=== PATIENT | male | born 1935 | race Caucasian/White ===

== ENCOUNTER 2017-08-24 12:57 | Observation (INO) ==
--- NOTE | 2017-08-24 13:03 | Emergency Department Note ---
Disposition Clinical Impression: Chest pain Disposition: Home, Self-Care Condition: Fair General Adult HPI - General Stated complaint: chest pain Time Seen by Provider: 08/24/17 13:00 - Related Data Home Medications Medication Instructions Recorded Confirmed Acetaminophen [Tylenol] 500 mg PO Q6HR PRN 02/04/16 08/24/17 Aspirin 81 mg PO DAILY 02/04/16 08/24/17 Cholecalciferol (Vitamin D3) 1,000 unit PO DAILY 02/04/16 08/24/17 [Vitamin D3] Cyanocobalamin (Vitamin B-12) 1,000 mcg SL DAILY 02/04/16 08/24/17 [Vitamin B-12] Lisinopril [Zestril] 10 mg PO DAILY 02/04/16 08/24/17 Vit A/Vit C/Vit E/Zinc/Copper 2 tab PO DAILY 02/04/16 08/24/17 [Preservision Areds Tablet] hydroCHLOROthiazide 25 mg PO DAILY 02/04/16 08/24/17 [Hydrochlorothiazide] Carbidopa/Levodopa/Entacapone 1 tab PO QID 08/24/17 08/24/17 [Stalevo 200 Tablet] Furosemide [Lasix] 20 mg PO DAILY PRN 08/24/17 08/24/17 Glycopyrrolate [Robinul] 1 mg PO BID 08/24/17 08/24/17 Tamsulosin [Flomax] 0.4 mg PO DAILY 08/24/17 08/24/17 Allergies Allergy/AdvReac Type Severity Reaction Status Date / Time Pneumococcal Vaccine Allergy Muscle Pain Verified 02/04/16 08:16 Past Medical History - Past Medical History Medical history: Reports: DVT, hypertension, pulmonary embolus, other Surgical history: Reports: knee replacement Psychiatric history: Reports: no psych history - Social History Smoking Status: Never smoker Smokeless Tobacco Status: No Alcohol use: Reports: none Drug use: Reports: none Course Vital Signs Temperature 98.2 F 08/24/17 13:03 Pulse Rate 67 08/24/17 13:03 Respiratory Rate 16 08/24/17 13:03 Blood Pressure 160/112 08/24/17 13:03 O2 Sat by Pulse Oximetry 98 08/24/17 13:03 Temperature 97.8 F 08/24/17 16:25 Pulse Rate 70 02/23/18 16:25 Respiratory Rate 17 08/24/17 16:25 Blood Pressure 133/76 08/24/17 16:25 O2 Sat by Pulse Oximetry 94 08/24/17 16:25 Oxygen Delivery Oxygen Delivery Room Air Medical Decision Making - Lab Data Result diagrams: 08/24/17 13:05 08/24/17 13:05 Lab Results 08/24/17 08/24/17 08/24/17 Range/Units 13:05 13:05 13:05 WBC 8.2 (4.3-11.1) K/mcL RBC 4.64 (4.19-5.50) M/mcL Hgb 14.5 (12.9-16.9) g/dL Hct 42.3 (37.5-50.1) % MCV 91.2 (83.0-100.0) fL MCH 31.3 (28.0-33.3) pg MCHC 34.3 (31.6-35.5) g/dL RDW 12.5 (11.5-14.5) % Plt Count 159 (140-400) K/mcL MPV 10.0 (9.4-12.4) fL Immature Gran % 0.5 (0-4) % Seg Neutrophils % 75.3 % Lymphocytes % 15.0 % Monocytes % 5.9 % Eosinophils % 2.9 % Basophils % 0.4 % Neutrophils # 6.2 (1.6-8.9) K/mcL Lymphocytes # 1.2 (0.6-4.6) K/mcL Monocytes # 0.5 (0.0-1.3) K/mcL Eosinophils # 0.2 (0.0-0.6) K/mcL Basophils # 0.0 (0.0-0.2) K/mcL PT 11.6 (9.4-12.1) Seconds INR 1.1 APTT 30.1 (26.0-36.0) Seconds Sodium 140 (136-145) mEq/L Potassium 4.1 (3.5-5.1) mEq/L Chloride 107 (98-107) mEq/L Carbon Dioxide 30 H (23-29) mEq/L BUN 19 (8-23) mg/dL Creatinine 1.04 (0.70-1.30) mg/dL Est GFR ( Amer) > 60 (> 60) Est GFR (Non-Af Amer) > 60 (> 60) BUN/Creatinine Ratio 18 (6-26) Glucose 117 H (70-105) mg/dL Calculated Osmolality 293 (280-300) Calcium 9.3 (8.6-10.3) mg/dL Total Bilirubin 1.3 H (0.3-1.0) mg/dL Direct Bilirubin 0.2 (0.0-0.2) mg/dL Indirect Bilirubin 1.1 (0.0-1.2) mg/dL AST 17 (13-39) Units/L ALT 4 L (7-52) Units/L Alkaline Phosphatase 39 (34-104) Units/L Troponin I (< 0.04) ng/mL Serum Total Protein 6.0 L (6.4-8.9) g/dL Albumin 4.0 (3.5-5.7) g/dL Globulin 2.0 L (2.4-3.5) g/dL Albumin/Globulin Ratio 2.0 (1.1-2.2) Lipase 44 (11-82) Units/L 08/24/17 Range/Units 13:05 WBC (4.3-11.1) K/mcL RBC (4.19-5.50) M/mcL Hgb (12.9-16.9) g/dL Hct (37.5-50.1) % MCV (83.0-100.0) fL MCH (28.0-33.3) pg MCHC (31.6-35.5) g/dL RDW (11.5-14.5) % Plt Count (140-400) K/mcL MPV (9.4-12.4) fL Immature Gran % (0-4) % Seg Neutrophils % % Lymphocytes % % Monocytes % % Eosinophils % % Basophils % % Neutrophils # (1.6-8.9) K/mcL Lymphocytes # (0.6-4.6) K/mcL Monocytes # (0.0-1.3) K/mcL Eosinophils # (0.0-0.6) K/mcL Basophils # (0.0-0.2) K/mcL PT (9.4-12.1) Seconds INR APTT (26.0-36.0) Seconds Sodium (136-145) mEq/L Potassium (3.5-5.1) mEq/L Chloride (98-107) mEq/L Carbon Dioxide (23-29) mEq/L BUN (8-23) mg/dL Creatinine (0.70-1.30) mg/dL Est GFR ( Amer) (> 60) Est GFR (Non-Af Amer) (> 60) BUN/Creatinine Ratio (6-26) Glucose (70-105) mg/dL Calculated Osmolality (280-300) Calcium (8.6-10.3) mg/dL Total Bilirubin (0.3-1.0) mg/dL Direct Bilirubin (0.0-0.2) mg/dL Indirect Bilirubin (0.0-1.2) mg/dL AST (13-39) Units/L ALT (7-52) Units/L Alkaline Phosphatase (34-104) Units/L Troponin I < 0.03 (< 0.04) ng/mL Serum Total Protein (6.4-8.9) g/dL Albumin (3.5-5.7) g/dL Globulin (2.4-3.5) g/dL Albumin/Globulin Ratio (1.1-2.2) Lipase (11-82) Units/L Attestation Statement - Attestation Attestation: I examined this patient and my medical decision-making was reviewed with the Resident Physician. I agree with the documented findings, disposition and treatment plan as described except to the extent set forth below. [id number] time provided Patient presents with chest discomfort when he goes from a position of leaning forward to standing up. He has a history of Parkinson's. He does not appear in any distress upon arrival. Patient seen in conjunction with the resident physician Dr. Clemente
[2017-08-24] MEDS ORDERED: Aspirin 81 MG TAB.CHEW PO ONE (13:13)
[2017-08-24] MEDS ORDERED: 0.9 % Sodium Chloride 500 ML IVC ONE (13:13)
--- NOTE | 2017-08-24 13:24 | Emergency Department Note ---
Disposition Clinical Impression: Chest pain Qualifiers: Chest pain type: unspecified Qualified Code(s): R07.9 - Chest pain, unspecified Disposition: Home, Self-Care Condition: Fair Time of Disposition: 15:50 Chest Pain HPI - General Chief Complaint: ED Chest Pain Stated Complaint: chest pain Time Seen by Provider: 08/24/17 13:00 Source: family Mode of arrival: ambulatory Limitations: no limitations Vital Signs Reviewed: Yes Nursing Notes Reviewed: Yes - History of Present Illness HPI Narrative: 82-year-old male presents with a history of DVT complaining of chest pain shortness of breath. No associated radiation to his right arm, tingling numbness in his right arm he has had pain for the last 2 or 3 days, is currently having 4 out of 10 pain, mostly substernal, associated with diaphoresis and shortness of breath. Patient has previously had DVTs but is not anticoagulated he does not have an IVC filter. Patient denies fever, chills , productive cough, abdominal pain. Urinary symptoms or pain. Pt complaint: chest pain Onset (ago): hour(s) Pain Location: substernal Severity: moderate Severity scale (1-10): 5 Improves with: nothing Worsens with: nothing Associated symptoms: Reports: nausea. Denies: vomiting, diaphoresis, dyspnea, sense of impending doom, palpitations - Related Data Home Medications Medication Instructions Recorded Confirmed Acetaminophen [Tylenol] 500 mg PO Q6HR PRN 02/04/16 02/04/16 Aspirin 81 mg PO DAILY 02/04/16 02/04/16 Carbidopa/Levodopa 25/100 [Sinemet 1 tab PO QID 02/04/16 02/04/16 25/100] Cholecalciferol (Vitamin D3) 1,000 unit PO DAILY 02/04/16 02/04/16 [Vitamin D3] Cyanocobalamin (Vitamin B-12) 1,000 mcg SL DAILY 02/04/16 02/04/16 [Vitamin B-12] Lisinopril [Zestril] 10 mg PO DAILY 02/04/16 02/04/16 Trihexyphenidyl [Artane] 2 mg PO BID 02/04/16 02/04/16 Vit A/Vit C/Vit E/Zinc/Copper 2 tab PO DAILY 02/04/16 02/04/16 [Preservision Areds Tablet] Vitamin B Complex [B Complex] 1 tab PO DAILY 02/04/16 02/04/16 hydroCHLOROthiazide 25 mg PO DAILY 02/04/16 02/04/16 [Hydrochlorothiazide] Allergies Allergy/AdvReac Type Severity Reaction Status Date / Time Pneumococcal Vaccine Allergy Muscle Pain Verified 02/04/16 08:16 All systems ED: reviewed and negative except as stated. Review of Systems: As Per HPI Constitutional: Denies: fever, chills Eyes: Denies: eye pain ENT ED: Denies: ear pain Cardiovascular: Denies: chest pain Respiratory: Denies: cough, dyspnea Gastrointestinal: Denies: abdominal pain Genitourinary: Denies: urgency, dysuria Musculoskeletal: Denies: back pain Integumentary: Denies: rash, abrasion Neurological: Denies: headache Psychiatric: Denies: anxiety Chest Pain PMH - Past Medical History Medical history: Reports: DVT, hypertension, pulmonary embolus, other Surgical history: Reports: knee replacement Psychiatric history: Reports: no psych history - Social History Smoking Status: Never smoker Alcohol use: Reports: none Drug use: Reports: none Physical Exam - General General appearance: alert, in distress - Head Head exam: atraumatic - Eye Eye exam: Present: normal appearance - ENT ENT exam: mucous membranes dry - Neck Neck exam: Present: normal inspection - Chest Chest inspection: Present: normal inspection - Cardiovascular Cardiovascular exam: Present: normal rhythm, tachycardia, other (pitting edema L >R) - Abdominal Exam Abdominal exam: Present: soft, Non-Tender - Extremities Exam Extremities exam: Present: normal inspection, full ROM - Expanded Lower Extremity Exam Lower leg exam: Present: swelling (+2 pitting) Neurovascular/Tendon exam: Present: normal capillary refill. Absent: motor deficit, sensory deficit - Neurological Exam Neurological exam: Present: alert, oriented X3, CN II-XII intact - Psychiatric Psychiatric exam: Present: normal affect - Skin Skin exam: Present: warm Course Course Narrative: 82-year-old male is tachycardic, history of DVTs or for we will get a DVT study of the right lower extremity, also plan is for CT PE to evaluate for pulmonary embolus nitroglycerin aspirin reassess. - Reevaluation(s) Reevaluation #1: Patient with no improvement after nitroglycerin, given fentanyl and Percocet, no acute distress negative troponin and no EKG changes, admitted for chest pain patient is currently stable except for the hospitals Time: 15:50 Vital Signs Temperature 98.2 F 08/24/17 13:03 Pulse Rate 67 08/24/17 13:03 Respiratory Rate 16 08/24/17 13:03 Blood Pressure 160/112 08/24/17 13:03 O2 Sat by Pulse Oximetry 98 08/24/17 13:03 Temperature 98.2 F 08/24/17 13:03 Pulse Rate 64 08/24/17 14:43 Respiratory Rate 14 08/24/17 14:43 Blood Pressure 118/74 08/24/17 14:43 O2 Sat by Pulse Oximetry 97 08/24/17 14:43 Oxygen Delivery Oxygen Delivery Room Air Chest Pain - Differential Diagnosis Likely: stable angina, unstable angina pectoris, atypical chest pain, chest pain - Medical Records Medical records reviewed: Yes I reviewed the patient's medical records. - Lab Data Lab results reviewed: Yes I reviewed the patient's lab results. Result diagrams: 08/24/17 13:05 08/24/17 13:05 Lab Results 08/24/17 08/24/17 08/24/17 Range/Units 13:05 13:05 13:05 WBC 8.2 (4.3-11.1) K/mcL RBC 4.64 (4.19-5.50) M/mcL Hgb 14.5 (12.9-16.9) g/dL Hct 42.3 (37.5-50.1) % MCV 91.2 (83.0-100.0) fL MCH 31.3 (28.0-33.3) pg MCHC 34.3 (31.6-35.5) g/dL RDW 12.5 (11.5-14.5) % Plt Count 159 (140-400) K/mcL MPV 10.0 (9.4-12.4) fL Immature Gran % 0.5 (0-4) % Seg Neutrophils % 75.3 % Lymphocytes % 15.0 % Monocytes % 5.9 % Eosinophils % 2.9 % Basophils % 0.4 % Neutrophils # 6.2 (1.6-8.9) K/mcL Lymphocytes # 1.2 (0.6-4.6) K/mcL Monocytes # 0.5 (0.0-1.3) K/mcL Eosinophils # 0.2 (0.0-0.6) K/mcL Basophils # 0.0 (0.0-0.2) K/mcL PT 11.6 (9.4-12.1) Seconds INR 1.1 APTT 30.1 (26.0-36.0) Seconds Sodium 140 (136-145) mEq/L Potassium 4.1 (3.5-5.1) mEq/L Chloride 107 (98-107) mEq/L Carbon Dioxide 30 H (23-29) mEq/L BUN 19 (8-23) mg/dL Creatinine 1.04 (0.70-1.30) mg/dL Est GFR ( Amer) > 60 (> 60) Est GFR (Non-Af Amer) > 60 (> 60) BUN/Creatinine Ratio 18 (6-26) Glucose 117 H (70-105) mg/dL Calculated Osmolality 293 (280-300) Calcium 9.3 (8.6-10.3) mg/dL Total Bilirubin 1.3 H (0.3-1.0) mg/dL Direct Bilirubin 0.2 (0.0-0.2) mg/dL Indirect Bilirubin 1.1 (0.0-1.2) mg/dL AST 17 (13-39) Units/L ALT 4 L (7-52) Units/L Alkaline Phosphatase 39 (34-104) Units/L Troponin I (< 0.04) ng/mL Serum Total Protein 6.0 L (6.4-8.9) g/dL Albumin 4.0 (3.5-5.7) g/dL Globulin 2.0 L (2.4-3.5) g/dL Albumin/Globulin Ratio 2.0 (1.1-2.2) Lipase 44 (11-82) Units/L 08/24/17 Range/Units 13:05 WBC (4.3-11.1) K/mcL RBC (4.19-5.50) M/mcL Hgb (12.9-16.9) g/dL Hct (37.5-50.1) % MCV (83.0-100.0) fL MCH (28.0-33.3) pg MCHC (31.6-35.5) g/dL RDW (11.5-14.5) % Plt Count (140-400) K/mcL MPV (9.4-12.4) fL Immature Gran % (0-4) % Seg Neutrophils % % Lymphocytes % % Monocytes % % Eosinophils % % Basophils % % Neutrophils # (1.6-8.9) K/mcL Lymphocytes # (0.6-4.6) K/mcL Monocytes # (0.0-1.3) K/mcL Eosinophils # (0.0-0.6) K/mcL Basophils # (0.0-0.2) K/mcL PT (9.4-12.1) Seconds INR APTT (26.0-36.0) Seconds Sodium (136-145) mEq/L Potassium (3.5-5.1) mEq/L Chloride (98-107) mEq/L Carbon Dioxide (23-29) mEq/L BUN (8-23) mg/dL Creatinine (0.70-1.30) mg/dL Est GFR ( Amer) (> 60) Est GFR (Non-Af Amer) (> 60) BUN/Creatinine Ratio (6-26) Glucose (70-105) mg/dL Calculated Osmolality (280-300) Calcium (8.6-10.3) mg/dL Total Bilirubin (0.3-1.0) mg/dL Direct Bilirubin (0.0-0.2) mg/dL Indirect Bilirubin (0.0-1.2) mg/dL AST (13-39) Units/L ALT (7-52) Units/L Alkaline Phosphatase (34-104) Units/L Troponin I < 0.03 (< 0.04) ng/mL Serum Total Protein (6.4-8.9) g/dL Albumin (3.5-5.7) g/dL Globulin (2.4-3.5) g/dL Albumin/Globulin Ratio (1.1-2.2) Lipase (11-82) Units/L - Radiology Data Radiology results reviewed: Yes I reviewed the patient's radiology results. Chest CTA 08/24/17 13:13 IMPRESSION: 1. No evidence of pulmonary embolism 2. No acute infiltrate or edema 3. Cardiomegaly 4. Cholelithiasis D/ / Gabriel Sierra MD / Gabriel Sierra MD Interpreting Provider: Gabriel Sierra MD Chest X-Ray 08/24/17 13:13 IMPRESSION: Normal chest x-ray D/ / Luan Quijano MD / Luan Quijano MD Interpreting Provider: Luan Quijano MD - EKG Data EKG attestation: Yes I reviewed and interpreted this EKG. EKG shows normal: sinus rhythm Rate: normal Rhythm: NSR (67 bpm MA 209 QRS [address] segment elevations or depressions) Heart Score - Score History: Slightly Suspicious EKG: Normal Age: Greater than 65 Risk Factors: Equal/Greater than 3 risk factor or history of atherosclerotic disease Troponin: Less than normal limit HEART Score Total: 4
[2017-08-24 13:27] LABS: Basophils % 0.4 %; Eosinophils # 0.2 K/mcL (0.0-0.6); Eosinophils % 2.9 %; Hematocrit 42.3 % (37.5-50.1); Hemoglobin 14.5 g/dL (12.9-16.9); Immature Granulocytes % 0.5 % (0-4); Lymphocytes # 1.2 K/mcL (0.6-4.6); Mean Corpuscular HGB Conc 34.3 g/dL (31.6-35.5); Mean Corpuscular Hemoglobin 31.3 pg (28.0-33.3); Mean Corpuscular Volume 91.2 fL (83.0-100.0); Monocytes # 0.5 K/mcL (0.0-1.3); Monocytes % 5.9 %; Neutrophils # 6.2 K/mcL (1.6-8.9); Platelet Count 159 K/mcL (140-400); Red Blood Count 4.64 M/mcL (4.19-5.50); Red Cell Distribution Width 12.5 % (11.5-14.5); Segmented Neutrophils % 75.3 %
[2017-08-24] MEDS ORDERED: Nitroglycerin 0.4 MG TAB.SUBL SL ONE (13:30)
[2017-08-24 13:38] LABS: INR 1.1; Prothrombin Time 11.6 Seconds (9.4-12.1)
[2017-08-24 13:40] LABS: Activated Partial Thrombo Time 30.1 Seconds (26.0-36.0)
[2017-08-24 13:48] LABS: Alanine Aminotransferase 4 Units/L (7-52); Alkaline Phosphatase 39 Units/L (34-104); Aspartate Amino Transferase 17 Units/L (13-39); BUN/Creatinine Ratio 18 (6-26); Bilirubin,Direct 0.2 mg/dL (0.0-0.2); Bilirubin,Indirect 1.1 mg/dL (0.0-1.2); Bilirubin,Total 1.3 mg/dL (0.3-1.0); Blood Urea Nitrogen 19 mg/dL (8-23); Calcium 9.3 mg/dL (8.6-10.3); Carbon Dioxide 30 mEq/L (23-29); Chloride 107 mEq/L (98-107); Glucose 117 mg/dL (70-105); Lipase 44 Units/L (11-82); Osmolality,Calculated 293 (280-300); Potassium 4.1 mEq/L (3.5-5.1); Sodium 140 mEq/L (136-145); eGFR For African Americans > 60 (> 60); eGFR For Non-African Americans > 60 (> 60)
[2017-08-24] MEDS ORDERED: *HR* FentaNYL (PF) 100 MCG/2 ML VIAL IVP ONE (15:01)
[2017-08-24] MEDS ORDERED: *HR* OxyCODONE/APAP 5/325 TABLET PO ONE (15:01)
[2017-08-24] MEDS ORDERED: Naloxone 0.4 MG/ML INJ IVP PRN (16:45)
[2017-08-24] MEDS ORDERED: Acetaminophen 325 MG TABLET PO PRN (16:45)
--- NOTE | 2017-08-24 16:51 | Internal Med History&Physical ---
Date of Encounter: 08/24/17 Time of Encounter: 16:49 Assessment and Plan (1) Chest pain Current visit: Yes Status: Acute to r/o ACS due to radiating to arm and numbness of right arm. EKG, chest XRay, initial Troponin normal. Continue Telemetry monitoring, serial Troponins. Check Echocardiogram, nuclear stress test in am. Continue ASA. Check lipid profile. Qualifiers: Chest pain type: unspecified Qualified Code(s): R07.9 - Chest pain, unspecified (2) History of DVT (deep vein thrombosis) Current visit: Yes Status: Chronic remote h/o- DVT and PE per family. CTA chest in the ER showed no e/o- PE or Pneumonia. F/up B/L leg venous Doppler U/S to r/o DVT. DVT prophylaxis with s.c Heparin. (3) Parkinson disease Current visit: Yes Status: Chronic stable and chronic. Continue home meds; supportive care and fall precautions. Internal Medicine - H&P: HPI Chief complaint: Chest pain Admitted From: Emergency Dept Plans for Post Hospital Care: Home History of present illness: Mr. Pritchett is a 82 year old male with h/o- parkinson disease, is brought in by family with c/o- left-sided chest pain. Patient reports he has been having intermittent chest pains for the last -23 days, radiating to neck and back, not associated with activity or diet. His pain got worse today, radiating to right arm and associated with right elbow pain and numbness, while en route to the ER. Had similar complains 2 years ago, no previous h/o- CAD or CHF. Past Med Surg Social Fam HX - Past Medical History Medical history: DVT, hypertension, pulmonary embolus, other (parkinson disease) Psychiatric history: no psych history - Past Surgical History Surgical History: knee replacement (B/L) - Social History Smoking Status: Never smoker Smokeless Tobacco Status: No Alcohol use: none Drug use: none Occupational status: unemployed Current living situation: Home, With Family Activity Level: Independent ambulation Recent Out of Country Travel Within the Last 8 Weeks: No Exposure or Possible Exposure to Illness During Travel: No - Family History Son Hx Family Cardiac Disorders: Yes (HTN) Internal Medicine - H&P: Meds Acetaminophen [Tylenol] 500 mg PO Q6HR PRN 02/04/16 [History] Aspirin 81 mg PO DAILY 02/04/16 [History] Cholecalciferol (Vitamin D3) [Vitamin D3] 1,000 unit PO DAILY 02/04/16 [History] Cyanocobalamin (Vitamin B-12) [Vitamin B-12] 1,000 mcg SL DAILY 02/04/16 [ History] Lisinopril [Zestril] 10 mg PO DAILY 02/04/16 [History] Vit A/Vit C/Vit E/Zinc/Copper [Preservision Areds Tablet] 2 tab PO DAILY [History] hydroCHLOROthiazide [Hydrochlorothiazide] 25 mg PO DAILY 02/04/16 [History] Carbidopa/Levodopa/Entacapone [Stalevo 200 Tablet] 1 tab PO QID 08/24/17 [ History] Furosemide [Lasix] 20 mg PO DAILY PRN 08/24/17 [History] Glycopyrrolate [Robinul] 1 mg PO BID 08/24/17 [History] Tamsulosin [Flomax] 0.4 mg PO DAILY 08/24/17 [History] 3 Allergy/AdvReac Type Severity Reaction Status Date / Time Pneumococcal Vaccine Allergy Muscle Pain Verified 02/04/16 08:16 All Systems PM: A 10-system review of systems was performed and is negative for pertinent findings except as documented above in the HPI. - Constitutional Constitutional: no chills, no fever(s), no night sweats - EENT Eyes: no change in vision, no discharge, no pain, no photophobia Ears: no ear discharge, no ear pain, no tinnitus Nose, mouth and throat: no dysphagia, no nasal discharge, no neck pain, no sore throat - Cardiovascular Cardiovascular ROS IM: chest pain, lightheadedness - Respiratory Respiratory: no cough, no dyspnea, no wheezing, no excessive phlegm production - Gastrointestinal Gastrointestinal: no abdominal pain, no diarrhea, no hematemesis, no hematochezia, no melena, no nausea, no vomiting - Musculoskeletal Musculoskeletal ROS IM: no numbness, no tingling - Integumentary Integumentary IM: no rash, no unusual bruising - Neurological Neurological ROS: tremor(s), no confusion, no convulsions, no focal weakness, no numbness, no tingling - Hematologic/Lymphatic Hematologic/Lymphatic: no easy bruising - Constitutional Vitals: Temp Pulse Resp BP Pulse Ox 97.8 F 70 17 133/76 94 08/24/17 16:25 08/24/17 16:25 08/24/17 16:25 08/24/17 16:25 08/24/17 16:25 General appearance: Present: A&O X 3 (mild hearing loss), answers questions appropriately - Respiratory Respiratory exam: Present: CTAB. Absent: accessory muscle use, rales, rhonchi, wheezes - Cardiovascular Cardiovascular exam: Present: RRR, +S1, +S2. Absent: diastolic murmur, gallop, rubs, systolic murmur - GI/Abdominal GI/Abdominal exam: Present: normal bowel sounds, soft, no peritoneal signs. Absent: distended, tenderness - Extremities Exam Extremities exam: Present: full ROM, pedal edema (1+ pitting pedal edema B/L lower legs and ankles, right>left), warm, radial pulses palpable and symmetrical. Absent: calf tenderness, cyanotic - Neurological Exam Neurological exam: Present: CN II-XII intact, oriented X3, no focal deficits ( pill-rolling resting tremors). Absent: pronater drift, facial droop, speech deficit Internal Med - H&P Results - Labs CBC & Chem 7: 08/24/17 13:05 08/24/17 13:05 - EKG Data -: EKG Interpreted by Myself EKG shows normal: sinus rhythm Rate: normal
[2017-08-24] MEDS: LEVODOPA PO SCH ×2 (20:07→20:20)
[2017-08-24] MEDS: CARBIDOPA PO SCH ×2 (20:07→20:20)
[2017-08-24] MEDS: ENTACAPONE PO SCH ×2 (20:07→20:20)
[2017-08-24] MEDS: *HR* Heparin 5,000 UNIT/ML VIAL SQ SCH (20:11)
[2017-08-24] MEDS: Glycopyrrolate 1 MG TABLET PO SCH (20:12)
[2017-08-25 05:29] LABS: Basophils # 0.1 K/mcL (0.0-0.2); Basophils % 0.6 %; Eosinophils # 0.3 K/mcL (0.0-0.6); Eosinophils % 3.5 %; Hemoglobin 13.2 g/dL (12.9-16.9); Immature Granulocytes % 0.5 % (0-4); Lymphocytes # 1.1 K/mcL (0.6-4.6); Lymphocytes % 14.3 %; Mean Corpuscular HGB Conc 33.8 g/dL (31.6-35.5); Mean Corpuscular Hemoglobin 30.9 pg (28.0-33.3); Mean Corpuscular Volume 91.3 fL (83.0-100.0); Mean Platelet Volume 9.9 fL (9.4-12.4); Monocytes # 0.6 K/mcL (0.0-1.3); Monocytes % 7.3 %; Neutrophils # 5.8 K/mcL (1.6-8.9); Nucleated Red Blood Cells 0.3 /100 WBC (0); Platelet Count 141 K/mcL (140-400); Red Blood Count 4.27 M/mcL (4.19-5.50); Red Cell Distribution Width 12.6 % (11.5-14.5); Segmented Neutrophils % 73.8 %
[2017-08-25] MEDS: *HR* Heparin 5,000 UNIT/ML VIAL SQ SCH (05:32)
[2017-08-25 06:09] LABS: BUN/Creatinine Ratio 17 (6-26); Blood Urea Nitrogen 20 mg/dL (8-23); Calcium 8.9 mg/dL (8.6-10.3); Carbon Dioxide 27 mEq/L (23-29); Chloride 108 mEq/L (98-107); Chol/HDL Ratio 3.3 (0-4.9); Cholesterol 116 mg/dL (< 200); Glucose 94 mg/dL (70-105); HDL Cholesterol 35 mg/dL (40-59); LDL Cholesterol,Calculated 65 mg/dL (0-99); Osmolality,Calculated 290 (280-300); Potassium 4.3 mEq/L (3.5-5.1); Sodium 139 mEq/L (136-145); Triglycerides 78 mg/dL (< 150); eGFR For African Americans > 60 (> 60); eGFR For Non-African Americans > 60 (> 60)
[2017-08-25] MEDS ORDERED: Regadenoson 0.4 MG/5 ML SYRINGE IVP ONE (06:59)
[2017-08-25] MEDS ORDERED: hydroCHLOROthiazide 25 MG TABLET PO SCH (09:00)
[2017-08-25] MEDS ORDERED: Aspirin 81 MG TAB.CHEW PO SCH (09:00)
[2017-08-25] MEDS ORDERED: Multivit/Ca/Min/Fe/FA 1 TAB TABLET PO SCH (09:00)
[2017-08-25] MEDS ORDERED: Cyanocobalamin (B-12) 1,000 MCG TABLET PO SCH (09:00)
[2017-08-25] MEDS ORDERED: Cholecalciferol (D-3) 1,000 UNIT TABLET PO SCH (09:00)
[2017-08-25 12:53] VITALS: BP 131/75
[2017-08-25] MEDS: CARBIDOPA PO SCH ×2 (13:57→14:52)
[2017-08-25] MEDS: LEVODOPA PO SCH ×2 (13:57→14:52)
[2017-08-25] MEDS: ENTACAPONE PO SCH ×2 (13:57→14:52)
[2017-08-25] MEDS: Glycopyrrolate 1 MG TABLET PO SCH (13:59)
--- NOTE | 2017-08-25 14:16 | Discharge Summary ---
Orders not resulted at time of discharge: Pending orders 08/24/17 16:47 NM kevin perf SPECT multi [NM] Routine Date of Encounter: 08/25/17 Time of Encounter: 14:13 - Discharge Diagnosis (1) Chest pain Priority: Primary Status: Acute Qualifiers: Chest pain type: precordial pain Qualified Code(s): R07.2 - Precordial pain (2) History of DVT (deep vein thrombosis) Priority: Secondary Status: Chronic (3) Parkinson disease Priority: Secondary Status: Chronic Hospital course: Mr. Pritchett is a 82 year old male patient with a history of hypertension, Parkinson's disease who was hospitalized here after presenting with left-sided chest pain radiating to the neck and right hand. He was observed here with telemetry. EKG was done which was negative for the stress test was negative for ischemia. As such patient is stable to be discharged home. He does have chest wall tenderness and his chest pain could be related to costochondritis. He is advised to take anti-inflammatory agents to help with his pain. In addition patient has been having hypertension that is suboptimally controlled. As such I am placing him on amlodipine 2.5 mg in addition to his usual antihypertensive regimen. He will follow up with his primary care provider for further management. Discharge discussed with: patient - Time Spent with Patient Total time spent providing and/or coordinating discharge services: Less than 30 minutes (25 min) - Discharge Medications Prescriptions: Nitroglycerin 0.4 mg SL Q5MIN PRN #30 tab.subl PRN Reason: Chest Pain amLODIPine [Norvasc] 2.5 mg PO DAILY #30 tablet Home Medications: Acetaminophen [Tylenol] 500 mg PO Q6HR PRN 02/04/16 [History] Aspirin 81 mg PO DAILY 02/04/16 [History] Cholecalciferol (Vitamin D3) [Vitamin D3] 1,000 unit PO DAILY 02/04/16 [History] Cyanocobalamin (Vitamin B-12) [Vitamin B-12] 1,000 mcg SL DAILY 02/04/16 [ History] Lisinopril [Zestril] 10 mg PO DAILY 02/04/16 [History] Vit A/Vit C/Vit E/Zinc/Copper [Preservision Areds Tablet] 2 tab PO DAILY [History] hydroCHLOROthiazide [Hydrochlorothiazide] 25 mg PO DAILY 02/04/16 [History] Carbidopa/Levodopa/Entacapone [Stalevo 200 Tablet] 1 tab PO QID 08/24/17 [ History] Furosemide [Lasix] 20 mg PO DAILY PRN 08/24/17 [History] Glycopyrrolate [Robinul] 1 mg PO BID 08/24/17 [History] Tamsulosin [Flomax] 0.4 mg PO DAILY 08/24/17 [History] Nitroglycerin 0.4 mg SL Q5MIN PRN #30 tab.subl 08/25/17 [Rx] amLODIPine [Norvasc] 2.5 mg PO DAILY #30 tablet 08/25/17 [Rx] Allergies/Adverse Reactions: 3 Allergy/AdvReac Type Severity Reaction Status Date / Time Pneumococcal Vaccine Allergy Muscle Pain Verified 02/04/16 08:16 Date of admission: 08/24/17 15:28 Primary care physician: MITRA FRENCH Discharging clinician: Julianna Saldana Anticipated date of discharge: 08/25/17 - Constitutional Vitals: Temp Pulse Resp BP Pulse Ox 97.8 F 68 18 131/75 96 08/25/17 12:52 08/25/17 12:52 08/25/17 12:52 08/25/17 12:52 08/25/17 12:52 General appearance: Present: A&O X 3 (mild hearing loss), answers questions appropriately - Neck Neck exam general surgery: Present: supple, trachea midline. Absent: lymphadenopathy - Respiratory Respiratory exam: Present: chest wall tenderness, CTAB. Absent: accessory muscle use, rales, rhonchi, wheezes - Cardiovascular Cardiovascular exam: Present: RRR, +S1, +S2. Absent: diastolic murmur, gallop, rubs, systolic murmur Additional comments: Left-sided chest wall tenderness - Patient Status Disposition: Home, Self-Care Condition: Good Functional capacity at discharge: independent ambulation Overall status at discharge: patient is progressing back to baseline - Discharge Instructions Instructions: Chest Pain (DC) [facility] Care Provider[facility] - (in 1-2 weeks) - Diet and Activity Activity: increase activity as tolerated Diet: low fat, low cholesterol, low salt diet
--- NOTE | 2017-08-27 06:26 | Electrocardiograph Report ---
[facility] Test Date: 2017-08-24 Pat Name: Donn Pritchett Department: 103 Room: 3B41 Gender: M Architecture Intern: FAWN : 1935 Requested By: Jimmy Clemente Order Number: [id number] Reading MD: Ty Suarez DO Measurements Intervals [place] Rate: 69 P: 1 [place]: 209 QRS: -24 QRSD: 94 T: 43 QT: 404 QTc: 423 Interpretive Statements SINUS RHYTHM WITH OCCASIONAL SUPRAVENTRICULAR PREMATURE COMPLEXES BORDERLINE LEFT AXIS DEVIATION [QRS AXIS < -20] LOW QRS VOLTAGE IN PRECORDIAL LEADS [QRS DEFLECTION < 1.0 mV IN CHEST LEADS] POSSIBLE RIGHT VENTRICULAR CONDUCTION DELAY [RSR (QR) IN V1/V2] Electronically Signed On 08-27-2017 6:24:27 EST by Ty Suarez DO
== END 2017-08-25 16:30 | disposition home or self-care (01) ==
LOC: 3BNU 12:57 → EMEROO 12:57 → SUATTDRO 15:28 → 3BNU 16:13
PROVIDERS: ADMIT Family Medicine; ATTEND Internal Medicine

== ENCOUNTER 2019-02-25 15:28 | Inpatient (IN) ==
--- NOTE | 2019-02-25 16:15 | Emergency Department Note ---
Disposition Clinical Impression: Neurological deficit present, Neurocognitive deficits CVA (cerebral vascular accident) Qualifiers: CVA mechanism: unspecified Qualified Code(s): I63.9 - Cerebral infarction, unspecified Cerebrovascular accident Qualifiers: CVA mechanism: unspecified Qualified Code(s): I63.9 - Cerebral infarction, unspecified Disposition: Admitted As Inpatient Condition: Fair Time of Disposition: 18:23 General Adult HPI - General Chief complaint: ED Neuro Symptoms/Deficit Stated complaint: Neuro symptoms,HX Dr.Jones odalis sent Time Seen by Provider: 02/25/19 15:44 Source: patient, family Limitations: no limitations Nursing Notes Reviewed: Yes Vital Signs Reviewed: Yes - History of Present Illness HPI Narrative: Patient is an 84-year-old male with a history of hypertension and Parkinson's who presents to the emergency department from his neurology appointment. History is primarily obtained from his who is at bedside. His states that 2 weeks ago the patient woke up in the morning with weakness, of his right upper and lower extremities. The patient also developed numbness/tingling of his right upper and lower extremities as well as increased dysphagia over the next couple weeks as well as an increased lack of ability to care for himself. Patient's states that the night prior to this event 2 weeks ago he was normal. The patient does see a skilled nursing physician, but they did not send him to the emergency department when the symptoms started and recommended today to be seen at Dr. Harmon office. Patient admits to weakness, headaches, memory loss, numbness tingling, blurry vision. Patient also admits to lower extremity edema started with his Parkinson's. Patient denies chest pain, palpitations, abdominal pain, shortness of breath. Patient has no history of stroke, Pain Scale: 0 - Related Data Home Medications Medication Instructions Recorded Confirmed Aspirin 81 mg PO DAILY 02/04/16 08/24/17 Cholecalciferol (Vitamin D3) 1,000 unit PO DAILY 02/04/16 08/24/17 [Vitamin D3] Cyanocobalamin (Vitamin B-12) 1,000 mcg SL DAILY 02/04/16 08/24/17 [Vitamin B-12] Vit A/Vit C/Vit E/Zinc/Copper 2 tab PO DAILY 02/04/16 08/24/17 [Preservision Areds Tablet] Furosemide [Lasix] 20 mg PO DAILY PRN 08/24/17 08/24/17 Glycopyrrolate [Robinul] 1 mg PO BID 08/24/17 08/24/17 Tamsulosin [Flomax] 0.4 mg PO DAILY 08/24/17 08/24/17 Carbidopa/Levodopa/Entacapone 1 each PO TID 02/25/19 [Stalevo 150 Tablet] Previous Rx's Medication Instructions Recorded Nitroglycerin 0.4 mg SL Q5MIN PRN #30 tab.subl 08/25/17 Allergies Allergy/AdvReac Type Severity Reaction Status Date / Time Pneumococcal Vaccine Allergy Muscle Pain Verified 02/04/16 08:16 All systems ED: reviewed and negative except as stated. Review of Systems: As Per HPI Constitutional: Denies: fever, chills Eyes: Reports: vision change. Denies: eye pain Cardiovascular: Reports: edema. Denies: chest pain, palpitations, dyspnea on exertion, orthopnea Respiratory: Denies: cough, dyspnea Gastrointestinal: Denies: abdominal pain, nausea, vomiting Genitourinary: Denies: urgency, dysuria, frequency Neurological: Reports: headache, weakness, numbness, paresthesias, confusion Past Medical History - Past Medical History Attestation: Yes The following information was validated with the patient. Source: patient, obtained from family Medical history: Reports: DVT, hypertension, pulmonary embolus, other Surgical history: Reports: knee replacement Psychiatric history: Reports: no psych history - Social History Smoking Status: Never smoker Smokeless Tobacco Status: No Alcohol use: Reports: none Drug use: Reports: none Physical Exam - General Limitations: no limitations General appearance: alert, in no apparent distress - Head Head exam: atraumatic, normocephalic, normal inspection - Eye Eye exam: Present: normal appearance, PERRL, EOMI. Absent: scleral icterus, conjunctival injection, nystagmus - ENT ENT exam: normal exam, normal oropharynx, other (Increased secretions) - Chest Chest inspection: Present: normal inspection, symmetric chest wall rise. Absent: tenderness - Respiratory Respiratory exam: Present: normal lung sounds bilaterally. Absent: respiratory distress, wheezes, stridor - Cardiovascular Cardiovascular exam: Present: regular rate, normal rhythm, normal heart sounds - Abdominal Exam Abdominal exam: Present: soft, Non-Tender. Absent: tenderness, distention, guarding, rebound - Extremities Exam Extremities exam: Present: other (Bilateral 2+ pitting edema of the ankles) - Neurological Exam Neurological exam: Present: alert, oriented X3, CN II-XII intact - Expanded Neurological Exam Patient oriented to: Present: person, place, time Speech: Present: fluid speech Cranial nerves: EOM function (II, III, IV, ): Normal, facial sensation (V): Normal, facial palsy (VII): Normal, spinal accessory function (XI): Normal, tongue deviation (XII): Normal Cerebellar function: finger to nose: Normal Motor strength - LUE: 5/5 Motor strength - RUE: 3/5 Motor strength - LLE: 5/5 Motor strength - RLE: 3/5 Upper motor neuron exam: paola neglect: Absent bilaterally Sensory exam upper extremity: light touch: Normal, Abnormal Right, pin prick: Normal Sensory exam lower extremity: light touch: Normal, Abnormal Right, pin prick: Normal Coma Scale Eye Opening: Spontaneous Coma Scale Motor Response: Obeys Commands Coma Scale Verbal Response: Oriented Coma Scale Total: 15 Course Course Narrative: The patient presented emergency department from his neurology appointment with concerns for CVA 2 weeks ago. We will perform a noncontrast head CT and collect labs. Plan to admit the patient for CVA stroke workup and consult neurology. - Reevaluation(s) Reevaluation #1: Spoke with neurology Dr. Kumar who recommended CVA workup and full strength aspi rin. Vital Signs Temperature 97.4 F L 02/25/19 15:38 Pulse Rate 70 02/25/19 15:38 Respiratory Rate 18 02/25/19 15:38 Blood Pressure 125/69 02/25/19 15:38 O2 Sat by Pulse Oximetry 97 02/25/19 15:38 Temperature 97.4 F L 02/25/19 15:38 Pulse Rate 69 02/25/19 19:38 Respiratory Rate 12 02/25/19 19:38 Blood Pressure 133/72 02/25/19 19:38 O2 Sat by Pulse Oximetry 96 02/25/19 19:38 Oxygen Delivery Oxygen Delivery Room Air Medical Decision Making - MDM Narrative Medical decision making narrative: Patient presented emergency department with right-sided weakness concerning for stroke. Patient is outside the TPA window was last known well as 2 weeks ago. Noncontrast head CT was negative for acute intracranial process. Spoke with neurology recommended a full-strength aspirin. Admission with stroke workup. - Medical Records Medical records reviewed: Yes I reviewed the patient's medical records. - Lab Data Lab results reviewed: Yes I reviewed the patient's lab results. Result diagrams: 02/25/19 16:30 02/25/19 16:30 Lab Results 02/25/19 02/25/19 02/25/19 Range/Units 16:30 16:30 16:30 WBC 8.1 (4.3-11.1) K/mcL RBC 4.40 (4.19-5.50) M/mcL Hgb 13.9 (12.9-16.9) g/dL Hct 40.6 (37.5-50.1) % MCV 92.3 (83.0-100.0) fL MCH 31.6 (28.0-33.3) pg MCHC 34.2 (31.6-35.5) g/dL RDW 12.5 (11.5-14.5) % Plt Count 167 (140-400) K/mcL MPV 9.9 (9.4-12.4) fL PT 11.8 (9.4-12.1) Seconds INR 1.0 APTT 33.7 (26.0-36.0) Seconds Sodium 142 (136-145) mEq/L Potassium 3.9 (3.5-5.1) mEq/L Chloride 104 (98-107) mEq/L Carbon Dioxide 30 H (23-29) mEq/L BUN 20 (8-23) mg/dL Creatinine 1.09 (0.70-1.30) mg/dL Est GFR ( Amer) > 60 (> 60) Est GFR (Non-Af Amer) > 60 (> 60) BUN/Creatinine Ratio 18 (6-26) Glucose 116 H (70-105) mg/dL Calculated Osmolality 298 (280-300) Calcium 9.1 (8.6-10.3) mg/dL Troponin I < 0.03 (< 0.04) ng/mL - Radiology Data Radiology results reviewed: Yes I reviewed the patient's radiology results. Chest X-Ray 02/25/19 16:19 IMPRESSION: No acute cardiopulmonary process. D/ / Theodore Baker MD / Theodore Baker MD Interpreting Provider: Theodore Baker MD Head CT 02/25/19 16:21 IMPRESSION: No acute intracranial abnormality detected. Paranasal sinus disease. D/ / Austin Gresham MD / Austin Gresham MD Interpreting Provider: Austin Gresham MD
[2019-02-25 16:51] LABS: Hematocrit 40.6 % (37.5-50.1); Hemoglobin 13.9 g/dL (12.9-16.9); Mean Corpuscular HGB Conc 34.2 g/dL (31.6-35.5); Mean Corpuscular Hemoglobin 31.6 pg (28.0-33.3); Mean Corpuscular Volume 92.3 fL (83.0-100.0); Mean Platelet Volume 9.9 fL (9.4-12.4); Platelet Count 167 K/mcL (140-400); Red Cell Distribution Width 12.5 % (11.5-14.5); White Blood Count 8.1 K/mcL (4.3-11.1)
[2019-02-25 17:13] LABS: BUN/Creatinine Ratio 18 (6-26); Blood Urea Nitrogen 20 mg/dL (8-23); Calcium 9.1 mg/dL (8.6-10.3); Carbon Dioxide 30 mEq/L (23-29); Chloride 104 mEq/L (98-107); Glucose 116 mg/dL (70-105); Osmolality,Calculated 298 (280-300); Potassium 3.9 mEq/L (3.5-5.1); Sodium 142 mEq/L (136-145); eGFR For African Americans > 60 (> 60); eGFR For Non-African Americans > 60 (> 60)
[2019-02-25 17:14] LABS: Troponin I < 0.03 ng/mL (< 0.04)
[2019-02-25 17:21] LABS: Prothrombin Time 11.8 Seconds (9.4-12.1)
[2019-02-25 17:23] LABS: Activated Partial Thrombo Time 33.7 Seconds (26.0-36.0)
[2019-02-25] MEDS ORDERED: Aspirin 81 MG TAB.CHEW PO STA (18:38)
--- NOTE | 2019-02-25 18:45 | Emergency Department Note ---
Disposition Clinical Impression: Neurological deficit present CVA (cerebral vascular accident) Qualifiers: CVA mechanism: unspecified Qualified Code(s): I63.9 - Cerebral infarction, unspecified Disposition: Admitted As Inpatient Condition: Good Referrals: Rustam Smith [Primary Care Provider] - Forms: ED Satisfaction Letter Time of Disposition: 18:45 General Adult HPI - General Chief complaint: ED Neuro Symptoms/Deficit Stated complaint: Neuro symptoms,HX Dr.Jones odalis sent Time Seen by Provider: 02/25/19 15:44 Source: patient, family Limitations: no limitations - History of Present Illness Pain Scale: 0 - Related Data Home Medications Medication Instructions Recorded Confirmed Acetaminophen [Tylenol] 500 mg PO Q6HR PRN 02/04/16 08/24/17 Aspirin 81 mg PO DAILY 02/04/16 08/24/17 Cholecalciferol (Vitamin D3) 1,000 unit PO DAILY 02/04/16 08/24/17 [Vitamin D3] Cyanocobalamin (Vitamin B-12) 1,000 mcg SL DAILY 02/04/16 08/24/17 [Vitamin B-12] Lisinopril [Zestril] 10 mg PO DAILY 02/04/16 08/24/17 Vit A/Vit C/Vit E/Zinc/Copper 2 tab PO DAILY 02/04/16 08/24/17 [Preservision Areds Tablet] hydroCHLOROthiazide 25 mg PO DAILY 02/04/16 08/24/17 [Hydrochlorothiazide] Carbidopa/Levodopa/Entacapone 1 tab PO QID 08/24/17 08/24/17 [Stalevo 200 Tablet] Furosemide [Lasix] 20 mg PO DAILY PRN 08/24/17 08/24/17 Glycopyrrolate [Robinul] 1 mg PO BID 08/24/17 08/24/17 Tamsulosin [Flomax] 0.4 mg PO DAILY 08/24/17 08/24/17 Previous Rx's Medication Instructions Recorded Nitroglycerin 0.4 mg SL Q5MIN PRN #30 tab.subl 08/25/17 amLODIPine [Norvasc] 2.5 mg PO DAILY #30 tablet 08/25/17 Allergies Allergy/AdvReac Type Severity Reaction Status Date / Time Pneumococcal Vaccine Allergy Muscle Pain Verified 02/04/16 08:16 Constitutional: Denies: fever, chills Eyes: Reports: vision change. Denies: eye pain Cardiovascular: Reports: edema. Denies: chest pain, palpitations, dyspnea on exertion, orthopnea Respiratory: Denies: cough, dyspnea Gastrointestinal: Denies: abdominal pain, nausea, vomiting Genitourinary: Denies: urgency, dysuria, frequency Neurological: Reports: headache, weakness, numbness, paresthesias, confusion Past Medical History - Past Medical History Medical history: Reports: DVT, hypertension, pulmonary embolus, other Surgical history: Reports: knee replacement Psychiatric history: Reports: no psych history - Social History Smoking Status: Never smoker Smokeless Tobacco Status: No Alcohol use: Reports: none Drug use: Reports: none Physical Exam - General Limitations: no limitations General appearance: alert, in no apparent distress Course - Consultations Consultation #1: discussed case with Dr. Haywood and she accepts patinet to medicine Time: 18:46 Vital Signs Temperature 97.4 F L 02/25/19 15:38 Pulse Rate 70 02/25/19 15:38 Respiratory Rate 18 02/25/19 15:38 Blood Pressure 125/69 02/25/19 15:38 O2 Sat by Pulse Oximetry 97 02/25/19 15:38 Temperature 97.4 F L 02/25/19 15:38 Pulse Rate 69 02/25/19 18:05 Respiratory Rate 18 02/25/19 18:05 Blood Pressure 133/72 02/25/19 18:05 O2 Sat by Pulse Oximetry 96 02/25/19 18:05 Oxygen Delivery Oxygen Delivery Room Air Medical Decision Making - Lab Data Result diagrams: 02/25/19 16:30 02/25/19 16:30 Lab Results 02/25/19 02/25/19 02/25/19 Range/Units 16:30 16:30 16:30 WBC 8.1 (4.3-11.1) K/mcL RBC 4.40 (4.19-5.50) M/mcL Hgb 13.9 (12.9-16.9) g/dL Hct 40.6 (37.5-50.1) % MCV 92.3 (83.0-100.0) fL MCH 31.6 (28.0-33.3) pg MCHC 34.2 (31.6-35.5) g/dL RDW 12.5 (11.5-14.5) % Plt Count 167 (140-400) K/mcL MPV 9.9 (9.4-12.4) fL PT 11.8 (9.4-12.1) Seconds INR 1.0 APTT 33.7 (26.0-36.0) Seconds Sodium 142 (136-145) mEq/L Potassium 3.9 (3.5-5.1) mEq/L Chloride 104 (98-107) mEq/L Carbon Dioxide 30 H (23-29) mEq/L BUN 20 (8-23) mg/dL Creatinine 1.09 (0.70-1.30) mg/dL Est GFR ( Amer) > 60 (> 60) Est GFR (Non-Af Amer) > 60 (> 60) BUN/Creatinine Ratio 18 (6-26) Glucose 116 H (70-105) mg/dL Calculated Osmolality 298 (280-300) Calcium 9.1 (8.6-10.3) mg/dL Troponin I < 0.03 (< 0.04) ng/mL Attestation Statement - Attestation Attestation: I reviewed the residents documentation and agree with the residents assessment and plan of care. I have personally had face to face time with the patient. (Brief History, Brief Exam, and MDM) I personally supervised and was present for the bean/critical portions of the following procedures completed by the resident: ekg 84 year old male presents to the ED with complaints of increased neuro symptoms of right sided upper and lower weakness that started this morning and was seen at DR. Harmon office and asked to come here for admission for TIA r/o CVA for CVA workup. Hero has been given ASA full dose and neuro will follow in consult ADMIT to medicine
[2019-02-26] MEDS ORDERED: Acetaminophen 325 MG TABLET PO PRN (03:09)
[2019-02-26 05:18] LABS: INR 1.1; Prothrombin Time 12.6 Seconds (9.4-12.1)
[2019-02-26 05:37] LABS: Alanine Aminotransferase 5 Units/L (7-52); Albumin 3.5 g/dL (3.5-5.7); Albumin/Globulin Ratio 1.5 (1.1-2.2); Alkaline Phosphatase 35 Units/L (34-104); Aspartate Amino Transferase 11 Units/L (13-39); BUN/Creatinine Ratio 19 (6-26); Blood Urea Nitrogen 18 mg/dL (8-23); Calcium 8.8 mg/dL (8.6-10.3); Carbon Dioxide 24 mEq/L (23-29); Chloride 107 mEq/L (98-107); Chol/HDL Ratio 3.2 (0-4.9); Cholesterol 111 mg/dL (< 200); Globulin 2.3 g/dL (2.4-3.5); Glucose 104 mg/dL (70-105); HDL Cholesterol 35 mg/dL (40-59); LDL Cholesterol,Calculated 59 mg/dL (0-99); Osmolality,Calculated 290 (280-300); Potassium 3.5 mEq/L (3.5-5.1); Sodium 139 mEq/L (136-145); Total Protein 5.8 g/dL (6.4-8.9); Triglycerides 87 mg/dL (< 150); Troponin I < 0.03 ng/mL (< 0.04); eGFR For African Americans > 60 (> 60); eGFR For Non-African Americans > 60 (> 60)
[2019-02-26] MEDS ORDERED: Ibuprofen 400 MG TABLET PO PRN (07:58)
[2019-02-26] MEDS: Nitroglycerin 0.4 MG TAB.SUBL SL PRN ×2 (08:28→08:44)
[2019-02-26] MEDS ORDERED: Nitroglycerin 0.4 MG TAB.SUBL SL PRN (08:49)
[2019-02-26] MEDS ORDERED: Bisacodyl 10 MG RECTAL SUPPOSITORY RC PRN (08:49)
[2019-02-26] MEDS ORDERED: Perflutren Lipid Microsphere 1.3 ML in 0.9 % Sodium Chloride 8.7 ML IVP ONE (08:58)
[2019-02-26 09:00] LABS: Estimated Average Glucose 114 mg/dl
--- NOTE | 2019-02-26 09:28 | Internal Med History&Physical ---
Date of Encounter: 02/26/19 Time of Encounter: 03:00 Internal Medicine - H&P: HPI Chief complaint: Right-sided weakness History of present illness: Mr. Pritchett is a 84 year old male with a past medical history of Parkinson's disease, hypertension, PE and DVT who presented to the ED from his neurology appointment due to concern for stroke like symptoms. Patient has been reporting two-week history of progressive weakness in the right upper and lower extremity. The patient also developed numbness/tingling of his right upper and lower extremities as well as increased dysphagia over the next couple weeks as well as an increased lack of ability to care for himself. Patient's states that the night prior to this event 2 weeks ago he was normal. The patient does see a senior care physician, but they did not send him to the emergency department when the symptoms started and recommended today to be seen at Dr. Harmon office. Patient denies chest pain, palpitations, abdominal pain, shortness of breath. Patient has no history of stroke. In the ED noncontrast head CT was negative for acute intracranial process. Case was discussed with neurology who recomme nded a full-strength aspirin. Admission with stroke workup. Past Med Surg Social Fam HX - Past Medical History Medical history: DVT, hypertension, pulmonary embolus, other Additional medical history: Parkisons Psychiatric history: no psych history - Past Surgical History Surgical History: knee replacement Additional surgical history: bilat knee replacement - Social History Smoking Status: Never smoker Smokeless Tobacco Status: No Alcohol use: none Drug use: none - Family History Son Family Member Ethnicity: Non- Living Status: Still Living Hx Family Cardiac Disorders: Yes (HTN) Internal Medicine - H&P: Meds Aspirin 81 mg PO DAILY 02/04/16 [History] Cholecalciferol (Vitamin D3) [Vitamin D3] 1,000 unit PO DAILY 02/04/16 [History] Cyanocobalamin (Vitamin B-12) [Vitamin B-12] 1,000 mcg PO DAILY 02/04/16 [History] Glycopyrrolate [Robinul] 1 mg PO Q12H 08/24/17 [History] Tamsulosin [Flomax] 0.4 mg PO DAILY 08/24/17 [History] Nitroglycerin 0.4 mg SL Q5MIN PRN #30 tab.subl 08/25/17 [Rx] Acetaminophen [Extra Strength Non-Aspirin] 1,000 mg PO BID 02/25/19 [History] Acetaminophen [Extra Strength Non-Aspirin] 500 mg PO Q4H PRN 02/25/19 [History] Amitriptyline [Elavil] 5 mg PO HS 02/25/19 [History] Bisacodyl [Dulcolax] 10 mg RC DAILY PRN 02/25/19 [History] Carbidopa/Levodopa/Entacapone [Stalevo 150 Tablet] 1 each PO TID 02/25/19 [History] Diclofenac Sodium [Voltaren] 2 gm TP BID 02/25/19 [History] Docusate Sodium [Dulcolax Stool Softener] 200 mg PO BID 02/25/19 [History] Furosemide [Lasix] 40 mg PO DAILY 02/25/19 [History] Hyoscyamine SL [Levsin Sl] 0.125 mg PO Q2H PRN 02/25/19 [History] Hyoscyamine Sulfate 1 ml PO QID 02/25/19 [History] Melatonin 2 mg PO HS 02/25/19 [History] Pantoprazole Sodium [Protonix] 40 mg PO DAILY 02/25/19 [History] Polyethylene Glycol 3350 [MiraLAX] 17 gm PO DAILY 02/25/19 [History] Pravastatin Sodium [Pravachol] 20 mg PO HS 02/25/19 [History] Sennosides [Senna] 8.6 mg PO HS 02/25/19 [History] dilTIAZem HCl [Cardizem] 60 mg PO Q12H 02/25/19 [History] Allergy/AdvReac Type Severity Reaction Status Date / Time Pneumococcal Vaccine Allergy Muscle Pain Verified 02/04/16 08:16 All Systems PM: A 10-system review of systems was performed and is negative for pertinent findings except as documented above in the HPI. - Constitutional Constitutional: no chills, no fever(s), no night sweats - EENT Eyes: no change in vision, no discharge, no pain, no photophobia Ears: no ear discharge, no ear pain, no tinnitus Nose, mouth and throat: no dysphagia, no nasal discharge, no neck pain, no sore throat - Cardiovascular Cardiovascular ROS IM: no chest pain, no diaphoresis, no dyspnea, no lightheadedness, no palpitations, no syncope - Respiratory Respiratory: no cough, no dyspnea, no wheezing, no excessive phlegm production - Gastrointestinal Gastrointestinal: no abdominal pain, no diarrhea, no hematemesis, no hematochezia, no melena, no nausea, no vomiting - Musculoskeletal Musculoskeletal ROS IM: no numbness, no tingling - Integumentary Integumentary IM: no rash, no unusual bruising - Neurological Neurological ROS: no confusion, no convulsions, no focal weakness, no numbness, no tingling, no tremor(s) - Hematologic/Lymphatic Hematologic/Lymphatic: no easy bruising - Constitutional Vitals: Temp Pulse Resp BP Pulse Ox 99.0 F 79 18 145/79 90 02/26/19 07:28 02/26/19 07:28 02/26/19 07:28 02/26/19 07:28 02/26/19 07:28 Exam: General: Alert and oriented Skin:Normal color, no rash, no lesions. HEENT:EOM, pupils equal, round and reactive. Cardiovascular:Normal S1 & S2, no rubs, murmurs or gallops. No JVD. Pulse regular. Lungs:Normal breath sounds, no wheezes or crackles. Abdomen:Soft, non-tender, no rigidity. Extremities:No deformity, no edema or tenderness, no joint swelling or clubbing. Neurological:Normal cognition; masked facies consistent with Parkinson's; 2 out of 5 muscle strength in the upper and lower extremities on the right. 3-4 out of 5 on the left. Could not assess cranial nerves fully due to patient's cooperation Pulses:Carotid and radial pulses normal +2. Rest of the physical exam is non contributory Internal Med - H&P Results - Labs CBC & Chem 7: 02/25/19 16:30 02/26/19 04:19 Labs: Short CBC 02/25/19 Range/Units 16:30 WBC 8.1 (4.3-11.1) K/mcL Hgb 13.9 (12.9-16.9) g/dL Hct 40.6 (37.5-50.1) % Plt Count 167 (140-400) K/mcL BMP 02/25/19 02/26/19 16:30 04:19 Sodium 142 139 Potassium 3.9 3.5 Chloride 104 107 Carbon Dioxide 30 H 24 BUN 20 18 Creatinine 1.09 0.95 Glucose 116 H 104 Calcium 9.1 8.8 Cardiac Enzymes 02/25/19 02/26/19 Range/Units 16:30 04:19 Troponin I < 0.03 < 0.03 (< 0.04) ng/mL Liver Function 02/26/19 Range/Units 04:19 Total Bilirubin 1.0 (0.3-1.0) mg/dL AST 11 L (13-39) Units/L ALT 5 L (7-52) Units/L Alkaline Phosphatase 35 (34-104) Units/L Albumin 3.5 (3.5-5.7) g/dL - Impressions ITS Impressions Chest X-Ray 02/25/19 16:19 IMPRESSION: No acute cardiopulmonary process. D/ / Theodore Baker MD / Theodore Baker MD Interpreting Provider: Theodore Baker MD Head CT 02/25/19 16:21 IMPRESSION: No acute intracranial abnormality detected. Paranasal sinus disease. D/ / Austin Gresham MD / Austin Gresham MD Interpreting Provider: Austin Gresham MD Brain MRI 02/25/19 20:18 IMPRESSION: No acute infarct. At least moderate chronic type small-vessel white matter ischemic changes. Question of abnormal signal region right sigmoid sinus. Consider MRV for further evaluation. D/ / Archie Snow MD / Archie Snow MD Interpreting Provider: Archie Snow MD - Assessment and Plan (1) Stroke-like symptoms Current Visit: Yes Status: Acute Assessment and plan: Patient with significant history of Parkinson disease presenting with a 2 week history of progressive right-sided weakness of the upper and lower extremities. Seen by patient's neurologist today Dr. Harmon and referred to the ED for further CVA/TIA workup. Neuro exam notable for right-sided weakness as compared to left. MRI was obtained which showed no evidence of an acute infarct. There is evidence of moderate chronic type small vessel white matter ischemic changes. Abnormal signal within the region of the right sigmoid sinus with consideration of a MRV for further evaluation. Otherwise no recent or current illness evident. No recent changes in medications. Etiology of patient's right-sided weakness unclear; possibly progression of Parkinson's. -Telemetry -Neurochecks -Bedside swallow eval -Echocardiogram; bilateral carotid Doppler -Neurology consult (2) Parkinson disease Current Visit: No Status: Chronic Assessment and plan: 12 year history of Parkinson's disease. -Continue current medical management. -Follow up neurology recommendations (3) DVT prophylaxis Current Visit: No Status: Acute Assessment and plan: Subcutaneous heparin - Time Spent With Patient Total time spent is greater than 50% in coordination of care (as documented) at patient's floor/unit and/or counseling patient:
--- NOTE | 2019-02-26 09:47 | Neurology - Consult Note ---
<Stan Barrientos M - Last Filed: 02/26/19 09:53> Date of Encounter: 02/26/19 Time of Encounter: 09:15 Assessment and Plan (1) Generalized weakness Current Visit: Yes Status: Acute MRI reviewed showing no evidence of CVA. On neurological examination patient did have generalized weakness which was worse on the right as well as reported nu mbness on the right side of face, right upper extremity and right lower extremity. History of Present Illness Chief complaint: "Weakness" HPI: Mr. Pritchett is a 84 year old male who presented to outpatient neurology appointment yesterday reporting weakness and right sided numbness. His present at bedside reports he woke up with weakness "all over" approximately two weeks ago which seems to be worsening. Patient also reports numbness on his right side which his reports has been present for 1 week and has been worsening. Patient stays at a [facility] where his reports he has been actively engaged in rehab and strength building exercises until 2 weeks ago when the weakness began. also reports noticing change in patients gait describing it as "more shuffling" than before. Patient denies noticing any faci al droop or changes in speech. Patient denies nausea, vomitting or changes in sleep. Past Med Surg Social Fam HX - Past Medical History Medical history: DVT, hypertension, pulmonary embolus, other Additional medical history: Parkisons Psychiatric history: no psych history - Past Surgical History Surgical History: knee replacement Additional surgical history: bilat knee replacement - Social History Smoking Status: Never smoker Smokeless Tobacco Status: No Alcohol use: none Drug use: none - Family History Son Family Member Ethnicity: Non- Living Status: Still Living Hx Family Cardiac Disorders: Yes (HTN) Medications and Allergies Aspirin 81 mg PO DAILY 02/04/16 [History] Cholecalciferol (Vitamin D3) [Vitamin D3] 1,000 unit PO DAILY 02/04/16 [History] Cyanocobalamin (Vitamin B-12) [Vitamin B-12] 1,000 mcg PO DAILY 02/04/16 [History] Glycopyrrolate [Robinul] 1 mg PO Q12H 08/24/17 [History] Tamsulosin [Flomax] 0.4 mg PO DAILY 08/24/17 [History] Nitroglycerin 0.4 mg SL Q5MIN PRN #30 tab.subl 08/25/17 [Rx] Acetaminophen [Extra Strength Non-Aspirin] 1,000 mg PO BID 02/25/19 [History] Acetaminophen [Extra Strength Non-Aspirin] 500 mg PO Q4H PRN 02/25/19 [History] Amitriptyline [Elavil] 5 mg PO HS 02/25/19 [History] Bisacodyl [Dulcolax] 10 mg RC DAILY PRN 02/25/19 [History] Carbidopa/Levodopa/Entacapone [Stalevo 150 Tablet] 1 each PO TID 02/25/19 [History] Diclofenac Sodium [Voltaren] 2 gm TP BID 02/25/19 [History] Docusate Sodium [Dulcolax Stool Softener] 200 mg PO BID 02/25/19 [History] Furosemide [Lasix] 40 mg PO DAILY 02/25/19 [History] Hyoscyamine SL [Levsin Sl] 0.125 mg PO Q2H PRN 02/25/19 [History] Hyoscyamine Sulfate 1 ml PO QID 02/25/19 [History] Melatonin 2 mg PO HS 02/25/19 [History] Pantoprazole Sodium [Protonix] 40 mg PO DAILY 02/25/19 [History] Polyethylene Glycol 3350 [MiraLAX] 17 gm PO DAILY 02/25/19 [History] Pravastatin Sodium [Pravachol] 20 mg PO HS 02/25/19 [History] Sennosides [Senna] 8.6 mg PO HS 02/25/19 [History] dilTIAZem HCl [Cardizem] 60 mg PO Q12H 02/25/19 [History] 3 Allergy/AdvReac Type Severity Reaction Status Date / Time Pneumococcal Vaccine Allergy Muscle Pain Verified 02/04/16 08:16 All Systems: The remainder of the systems were reviewed and are negative - Constitutional Constitutional ROS IM: no anorexia, no chills, no night sweats - Nose, Mouth, Throat Nose, mouth and throat: dysphagia (admits to noticeable dysphagia for past 2 weeks), no change in voice, no dizziness - Cardiovascular Cardiovascular ROS IM: chest pain (reporting chest pain today), no diaphoresis, no dyspnea - Respiratory Respiratory IM: no cough, no hemoptysis - Gastrointestinal Gastrointestinal: dysphagia, no diarrhea, no nausea - Musculoskeletal Musculoskeletal ROS IM: muscle weakness ( reports generalized weakness), numbness (reports 2 week history of right sided numbness), stiffness (chronic stiffness), no myalgias - Neurological Neurological ROS: abnormal gait (shuffling gait), numbness (right sided for past 2 weeks), no behavioral changes - Endocrine Endocrine IM: no excessive sweating, no flushing Physical Examination - Vital Signs Vital Signs: Initial Vital Signs Temp Pulse Resp BP Pulse Ox 97.4 F L 70 18 125/69 97 02/25/19 15:38 02/25/19 15:38 02/25/19 15:38 02/25/19 15:38 02/25/19 15:38 - Exam Exam: GENERAL: Comfortable in no acute distress HEENT: Normal LUNGS: CTA HEART: RRR, S1 S2 Audible, no murmur EXTREMITIES: No Pedal edema. DETAILED NEUROLOGICAL EXAMINATION: MENTAL STATUS: Oriented to person, place, date and situation. Memory: knows the President, Aware of recent events Recent Memory Intact, Attention span is normal Cranial Nerve Examination: CN - II: Visual Acuity, Field of Vision Normal, Pupils- size shape reaction to light and accommodation: All normal. CN III, IV, : External ocular movements were limited in both horizontal and vertical movements, Pupils were reactive, Nodrooping of the eyelids CN V: Sensation over the left side of face to light touch and pinprick normal, patient reports diminshed sensation to light touch on right side of face. Corneal reflexes not tested CN VII: No facial asymmetry, no flattening of nasolabial folds, no difficulty in closing the eyes, no loss of forehead wrinkles, no difficulty in eye-closure, frowning raising eyebrows. CNVIII: No significant hearing loss CN IX, X: Uvula centralized not deviated, Gag reflex: Not tested CN X1: Sternocleidomastoid, trapezius, normal or evidence of any weakness. CN X11: No Dysarthria, no wasting or fibrilation of tongue muscles, no deviation, tongue muscle strength normal. Motor examination: No hypertrophy, tone was normal Upper limbs Proximal- Difficulty in lifting both arms above head with left arm able to be lifted slightly higher than right. 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 Pain- Pinprick, Temperature all normal, Deep sensation normal, Joint position sense normal. Cortical sensation, Tactile discrimination, localization and extinction all normal. Deep tendon reflexes. Symmetrical bilateral, No evidence of Babinski. No sign of meningeal irritation Gait Examination: Deferred Results - Laboratory Findings CBC and BMP: 02/25/19 16:30 02/26/19 04:19 Abnormal lab findings: Abnormal lab results PT 12.6 Seconds (9.4-12.1) H 02/26/19 04:19 Carbon Dioxide 30 mEq/L (23-29) H 02/25/19 16:30 Glucose 116 mg/dL (70-105) H 02/25/19 16:30 POC Glucose 113 mg/dL (70-99) H 02/25/19 17:16 AST 11 Units/L (13-39) L 02/26/19 04:19 ALT 5 Units/L (7-52) L 02/26/19 04:19 Serum Total Protein 5.8 g/dL (6.4-8.9) L 02/26/19 04:19 Globulin 2.3 g/dL (2.4-3.5) L 02/26/19 04:19 HDL Cholesterol 35 mg/dL (40-59) L 02/26/19 04:19 Consult Discharge Plan - Plan Referrals: Rustam Smith [Primary Care Provider] - <Gilberto uKmar - Last Filed: 02/26/19 18:02> Date of Encounter: 02/26/19 History of Present Illness HPI: Mr. Pritchett is a 84 year old male All Systems: The remainder of the systems were reviewed and are negative Physical Examination - Vital Signs Vital Signs: Initial Vital Signs Temp Pulse Resp BP Pulse Ox 97.4 F L 70 18 125/69 97 02/25/19 15:38 02/25/19 15:38 02/25/19 15:38 02/25/19 15:38 02/25/19 15:38 Results - Laboratory Findings CBC and BMP: 02/25/19 16:30 02/26/19 04:19 Abnormal lab findings: Abnormal lab results PT 12.6 Seconds (9.4-12.1) H 08/28/19 04:19 D-Dimer 958 ng/mLFEU (0-500) H 02/26/19 11:11 Carbon Dioxide 30 mEq/L (23-29) H 02/25/19 16:30 Glucose 116 mg/dL (70-105) H 02/25/19 16:30 POC Glucose 113 mg/dL (70-99) H 02/25/19 17:16 AST 11 Units/L (13-39) L 02/26/19 04:19 ALT 5 Units/L (7-52) L 02/26/19 04:19 Serum Total Protein 5.8 g/dL (6.4-8.9) L 02/26/19 04:19 Globulin 2.3 g/dL (2.4-3.5) L 02/26/19 04:19 HDL Cholesterol 35 mg/dL (40-59) L 02/26/19 04:19
[2019-02-26] MEDS ORDERED: *HR* OxyCODONE/APAP 5/325 TABLET PO PRN (10:10)
[2019-02-26] MEDS: Cholecalciferol (D-3) 1,000 UNIT (25MCG) TABLET PO SCH (10:36)
[2019-02-26] MEDS: Aspirin 81 MG TAB.CHEW PO SCH (10:36)
[2019-02-26] MEDS: Furosemide 40 MG TABLET PO SCH (10:36)
[2019-02-26] MEDS: Cyanocobalamin (B-12) 1,000 MCG TABLET PO SCH (10:36)
[2019-02-26] MEDS: Glycopyrrolate 1 MG TABLET PO SCH ×2 (10:37→19:54)
[2019-02-26] MEDS: Carbidopa/Levodopa 25/100 TABLET PO SCH ×3 (10:41→19:54)
--- NOTE | 2019-02-26 10:49 | Internal Med Progress Note ---
Hospitalist Progress Note - Encounter Date of Encounter: 02/26/19 Time of Encounter: 10:37 - Subjective Interval History: Mr. Pritchett is a 84 year old male with a past medical history of Parkinson's disease, hypertension, PE and DVT who presented to the ED from his neurology appointment due to concern for stroke like symptoms. Patient has been reporting two-week history of progressive weakness in the right upper and lower extremity. The patient also developed numbness/tingling of his right upper and lower extremities as well as increased dysphagia over the last couple weeks as well as an increased lack of ability to care for himself. Patient was admitted in the hospital placed him on radiation monitor. His his serial troponin came back as negative. His his CT of the head did not show any acute intracranial hemorrhage. His brain MRI did not show any acute infarct. Today patient start complaining about left chest wall pain. Patient stated 9 out of 10 in severity and continuous pain. He does have reproducible chest pain. - Exam Vitals: Temp Pulse Resp BP Pulse Ox 99.0 F 79 18 145/79 90 02/26/19 07:28 02/26/19 07:28 02/26/19 07:28 02/26/19 07:28 02/26/19 07:28 Exam: Gen: Alert, awake, Oriented to time,place and person looks weak and lethargic.. He does have resting tremors Chest: Diminished breath sounds B/L, No wheezing, No crackles, No rales reproducible chest wall tenderness Heart: S1S2+ RRR No murmurs Abd: Soft, NT, BS +, No organomegaly Ext: No edema, pulses are palpable, No calf tenderness Neuro : No acute focal neuro deficits noticed Skin: No rash. - Assessment and Plan (1) Chest pain Current Visit: No Status: Acute Assessment and Plan: So far negative trop x 2 Cont on tele reviewed EKG - NSR, No acute ST, T changes ASA 81mg, Cardizem, and statin Nitro PRN Also placed him on Percocet PRN for pain Since he is high risk for ACS, will order Stress test NPO after mid night (2) Right sided weakness Current Visit: Yes Status: Acute Assessment and Plan: r/o CVA His weakness mostly due to physical deconditioning with his worsening Parkinson's disease MRI of Brain - negative for infarction Neuro on board appreciate recommendation PT / OT eval may need placement (3) Parkinson disease Current Visit: No Status: Chronic Assessment and Plan: Continue his home medications Neuro on board.. Appreciate recommendations PT/OT eval (4) DVT prophylaxis Current Visit: No Status: Acute Assessment and Plan: Subcutaneous heparin - Time Spent with Patient Total time spent is greater than 50% in coordination of care (as documented) at patient's floor/unit and/or counseling patient: Internal Medicine: Result - Labs CBC & Chem 7: 02/25/19 16:30 02/26/19 04:19 Labs: Short CBC 02/25/19 Range/Units 16:30 WBC 8.1 (4.3-11.1) K/mcL Hgb 13.9 (12.9-16.9) g/dL Hct 40.6 (37.5-50.1) % Plt Count 167 (140-400) K/mcL BMP 02/25/19 02/26/19 16:30 04:19 Sodium 142 139 Potassium 3.9 3.5 Chloride 104 107 Carbon Dioxide 30 H 24 BUN 20 18 Creatinine 1.09 0.95 Glucose 116 H 104 Calcium 9.1 8.8 Cardiac Enzymes 02/25/19 02/26/19 Range/Units 16:30 04:19 Troponin I < 0.03 < 0.03 (< 0.04) ng/mL Liver Function 02/26/19 Range/Units 04:19 Total Bilirubin 1.0 (0.3-1.0) mg/dL AST 11 L (13-39) Units/L ALT 5 L (7-52) Units/L Alkaline Phosphatase 35 (34-104) Units/L Albumin 3.5 (3.5-5.7) g/dL - ABG Interpretation ABG results: PT/INR, D-dimer PT 12.6 Seconds (9.4-12.1) H 02/26/19 04:19 - Impressions Impressions Chest X-Ray 02/25/19 16:19 IMPRESSION: No acute cardiopulmonary process. D/ / Theodore Baker MD / Theodore Baker MD Interpreting Provider: Theodore Baker MD Head CT 02/25/19 16:21 IMPRESSION: No acute intracranial abnormality detected. Paranasal sinus disease. D/ / Austin Gresham MD / Austin Gresham MD Interpreting Provider: Austin Gresham MD Brain MRI 02/25/19 20:18 IMPRESSION: No acute infarct. At least moderate chronic type small-vessel white matter ischemic changes. Question of abnormal signal region right sigmoid sinus. Consider MRV for further evaluation. D/ / Archie Snow MD / Archie Snow MD Interpreting Provider: Archie Snow MD Consult Discharge Plan - Plan Referrals: Rustam Smith [Primary Care Provider] - (1) Chest pain Qualifiers: Chest pain type: precordial pain Qualified Code(s): R07.2 - Precordial pain
[2019-02-26] MEDS: *HR* Heparin 5,000 UNIT/ML VIAL SQ SCH ×3 (12:53→20:17)
--- NOTE | 2019-02-26 13:05 | Electrocardiograph Report ---
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
[2019-02-26] MEDS: dilTIAZem HCl 60 MG TABLET PO SCH ×2 (13:26→19:54)
[2019-02-26] MEDS ORDERED: Isovue-370 500 ML BOTTLE IVP ONE (14:35)
[2019-02-27 02:57] LABS: BUN/Creatinine Ratio 20 (6-26); Blood Urea Nitrogen 21 mg/dL (8-23); Calcium 8.7 mg/dL (8.6-10.3); Carbon Dioxide 26 mEq/L (23-29); Chloride 105 mEq/L (98-107); Glucose 103 mg/dL (70-105); Osmolality,Calculated 287 (280-300); Potassium 3.4 mEq/L (3.5-5.1); Sodium 137 mEq/L (136-145); eGFR For African Americans > 60 (> 60); eGFR For Non-African Americans > 60 (> 60)
[2019-02-27] MEDS ORDERED: Regadenoson 0.4 MG/5 ML SYRINGE IVP ONE (06:12)
[2019-02-27] MEDS: *HR* Heparin 5,000 UNIT/ML VIAL SQ SCH ×3 (06:15→21:37)
[2019-02-27] MEDS: Carbidopa/Levodopa 25/100 TABLET PO SCH ×3 (06:15→19:43)
[2019-02-27] MEDS: Glycopyrrolate 1 MG TABLET PO SCH ×2 (11:02→21:37)
[2019-02-27] MEDS: Aspirin 81 MG TAB.CHEW PO SCH (11:02)
[2019-02-27] MEDS: Cholecalciferol (D-3) 1,000 UNIT (25MCG) TABLET PO SCH (11:02)
[2019-02-27] MEDS: Cyanocobalamin (B-12) 1,000 MCG TABLET PO SCH (11:02)
[2019-02-27] MEDS: Furosemide 40 MG TABLET PO SCH (11:02)
[2019-02-27] MEDS: dilTIAZem HCl 60 MG TABLET PO SCH ×2 (11:02→21:37)
--- NOTE | 2019-02-27 14:21 | Electrocardiograph Report ---
[address] [address] Test Date: 2019-02-26 Pat Name: Donn Pritchett Department: 113 Room: 3B22 Gender: M Imcu Nurse: : 1935 Requested By: Malika Bentley Order Number: [id number] Reading MD: Leland Gamez Measurements Intervals [place] Rate: 71 P: [place]: 0 QRS: -22 QRSD: 89 T: 48 QT: 414 QTc: 436 Interpretive Statements ATRIAL FIBRILLATION BORDERLINE LEFT AXIS DEVIATION NONSPECIFIC ST-T CHANGES Electronically Signed On 02-27-2019 14:19:32 EDT by Leland Gamez
--- NOTE | 2019-02-27 14:37 | Cardiology Consult Note ---
Date of Encounter: 02/27/19 Time of Encounter: 14:32 Assessment and Plan (1) Abnormal stress test Current Visit: Yes Status: Acute 1. Abnormal stress test showed small-sized, mild to moderate intensity stress perfusion defect basilar mid inferlateral wall possibly r/t increased symptoms of Parkinson dx. this stay. Atypical chest pain is reproducable. 2. Echo showed LVEF 60%. Normal LV chamber size, wall thickness and function. Normal right ventricular structure and function. No significant valvular dysfunction. No evidence of a PFO with agitated saline contrast. No evidence of pulmonary hypertension. Rhythm strip suggests atrial fibrillation. 3. Discussed with the patient, his , and Dr. Gamez. Reviewed possible courses of treatment and agreed that the chest pain is related to ecymossis on left axillary chest wall. We also discussed the results of the abnormal stress test compared to the echo with EF of 60%, and negative troponins. Given the ongoing concerns for the decline in functional abilities over the last few weeks, both the patient and his would prefer to hold off on a LHC. Both the patient and his understand the treatments and agree with the [facility]. (2) Chest pain Current Visit: No Status: Acute 1. Troponins negative x 3. 2. Chest pain tender to touch, specifically located left lower axillary with mild ecymosis visible same area. 3. No ischemic changes on EKG. Qualifiers: Chest pain type: precordial pain Qualified Code(s): R07.2 - Precordial pain (3) Atrial fibrillation Current Visit: Yes Status: Acute 1. Currently rate controlled A-fib on telemetry. [address] HR 63. 2. On ASA, cardizem, continue. 2. Not starting anticoagulation at this time d/t high fall risk related to advanced Parkinson dx. Patient and are aware of the risks associated with A-fib without anticoagulation that include CVA and embolic events. Qualifiers: Qualified Code(s): I48.91 - Unspecified atrial fibrillation Discussion w patient/family: The assessment and plan as outlined above was discussed with the patient and/or family members who expressed understanding and agreement. All questions were answered. Thank you for involving us in the care of your patient. Please call with any questions. History of Present Illness Consult date: 02/27/19 Consult reason: abnormal stress test Chief complaint: Weakness History of present illness: Mr. Pritchett is a 84 year old male with PMH of DVT, HTN, PE, Parkinson dx, that presented for two-week history of progressive weakness in the right upper and lower extremities, increased n/t of his right upper and lower extremities as well as increased dysphagia. Consulted for abnormal stress test. Complaints of constant ahce low grade left lower axillary chest/rib pain with visible ecym osis. Denies radiation, aggravated with touch, denies alleviating factors. Admits to easily bleeding, bruising. Past Med Surg Social Fam HX - Past Medical History Attestation: Yes The following information was validated with the patient. Source: patient, obtained from family Medical history: DVT, hypertension, pulmonary embolus, other Additional medical history: Parkisons Psychiatric history: no psych history - Past Surgical History Surgical History: knee replacement Additional surgical history: bilat knee replacement - Social History Smoking Status: Never smoker Smokeless Tobacco Status: No Alcohol use: none Drug use: none - Family History Son Family Member Ethnicity: Non- Living Status: Still Living Hx Family Cardiac Disorders: Yes (HTN) Medications and Allergies Aspirin 81 mg PO DAILY 02/04/16 [History] Cholecalciferol (Vitamin D3) [Vitamin D3] 1,000 unit PO DAILY 02/04/16 [History] Cyanocobalamin (Vitamin B-12) [Vitamin B-12] 1,000 mcg PO DAILY 02/04/16 [History] Glycopyrrolate [Robinul] 1 mg PO Q12H 08/24/17 [History] Tamsulosin [Flomax] 0.4 mg PO DAILY 08/24/17 [History] Nitroglycerin 0.4 mg SL Q5MIN PRN #30 tab.subl 08/25/17 [Rx] Acetaminophen [Extra Strength Non-Aspirin] 1,000 mg PO BID 02/25/19 [History] Acetaminophen [Extra Strength Non-Aspirin] 500 mg PO Q4H PRN 02/25/19 [History] Amitriptyline [Elavil] 5 mg PO HS 02/25/19 [History] Bisacodyl [Dulcolax] 10 mg RC DAILY PRN 02/25/19 [History] Carbidopa/Levodopa/Entacapone [Stalevo 150 Tablet] 1 each PO TID 02/25/19 [History] Diclofenac Sodium [Voltaren] 2 gm TP BID 02/25/19 [History] Docusate Sodium [Dulcolax Stool Softener] 200 mg PO BID 02/25/19 [History] Furosemide [Lasix] 40 mg PO DAILY 02/25/19 [History] Hyoscyamine SL [Levsin Sl] 0.125 mg PO Q2H PRN 02/25/19 [History] Hyoscyamine Sulfate 1 ml PO QID 02/25/19 [History] Melatonin 2 mg PO HS 02/25/19 [History] Pantoprazole Sodium [Protonix] 40 mg PO DAILY 02/25/19 [History] Polyethylene Glycol 3350 [MiraLAX] 17 gm PO DAILY 02/25/19 [History] Pravastatin Sodium [Pravachol] 20 mg PO HS 02/25/19 [History] Sennosides [Senna] 8.6 mg PO HS 02/25/19 [History] dilTIAZem HCl [Cardizem] 60 mg PO Q12H 02/25/19 [History] Allergy/AdvReac Type Severity Reaction Status Date / Time Pneumococcal Vaccine Allergy Muscle Pain Verified 02/04/16 08:16 All Systems Review: The remainder of the systems were reviewed and are negative - Cardiovascular Cardiovascular: as per HPI Physical Examination Vital Signs, Last 4 Hours Temp Pulse Resp BP Pulse Ox 02/27/19 12:02 97.4 F L 67 16 127/64 94 General: Conversant, No Apparent Distress HEENT: Atraumatic, Normocephaly, Mucus Membranes Moist Neck: No JVD, Normal carotid pulses Cardiac: Reg Rate and Rhythm, Normal S1 and S2, No Murmur, Other (irregulary irregular) Lungs: Normal Breath Sounds, No Wheeze, Rales, Rhonchi Neuro: Alert and responsive, No focal deficits noted Abdomen: Soft, Non-Tender Skin: No rashes noted on visualized skin Musculoskeletal: Other (left sided chest tenderness ) Extremities: No Clubbing, No Cyanosis, No Edema, Normal Pulses Results 02/25/19 16:30 02/27/19 01:28 Lab Results 02/27/19 01:28 Sodium 137 Potassium 3.4 L Chloride 105 Carbon Dioxide 26 BUN 21 Creatinine 1.05 Glucose 103 Calcium 8.7 Impressions ITS Impressions Chest X-Ray 02/25/19 16:19 IMPRESSION: No acute cardiopulmonary process. D/ / Theodore Baker MD / Theodore Baker MD Interpreting Provider: Theodore Baker MD Head CT 02/25/19 16:21 IMPRESSION: No acute intracranial abnormality detected. Paranasal sinus disease. D/ / Austin Gresham MD / Austin Gresham MD Interpreting Provider: Austin Gresham MD Brain MRI 02/25/19 20:18 IMPRESSION: No acute infarct. At least moderate chronic type small-vessel white matter ischemic changes. Question of abnormal signal region right sigmoid sinus. Consider MRV for further evaluation. D/ / Archie Snow MD / Archie Snow MD Interpreting Provider: Archie Snow MD Echocardiogram 02/26/19 08:30 Impressions: LVEF 60%. Normal LV chamber size, wall thickness and function. Normal right ventricular structure and function. No significant valvular dysfunction. No evidence of a PFO with agitated saline contrast. No evidence of pulmonary hypertension. Rhythm strip suggests atrial fibrillation. Left Ventricular Wall Motion: Rest Echo Findings All wall segments showed normal motion. videofluoroscopic Swallow 02/26/19 11:42 IMPRESSION: Suspected small amount of aspiration on the initial swallow of thin barium. No other episodes of penetration or aspiration were seen. Please see separate speech pathology report for full discussion of findings and recommendations. D/ / 02/26/2019 16:27:56 Theodore Baker MD / [email or web address] Interpreting Provider: Thoedore Baker MD Chest CTA 02/26/19 14:35 IMPRESSION: No evidence of pulmonary embolism or acute pulmonary abnormality. D/ / Francisco Herman / Francisco Herman Interpreting Provider: Francisco Herman Active Medications Acetaminophen (Tylenol) 650 mg PO Q6HR PRN PRN Reason: Pain Stop: 08/28/19 03:10 Last Admin: 02/26/19 03:21 Dose: 650 mg Documented by: Amitriptyline HCl (Elavil) 5 mg PO HS [facility] Stop: 08/28/19 21:01 Last Admin: 02/26/19 19:53 Dose: 5 mg Documented by: Aspirin (Aspirin) 81 mg PO DAILY [facility] Stop: 08/28/19 09:01 Last Admin: 02/27/19 11:02 Dose: 81 mg Documented by: Bisacodyl (Dulcolax) 10 mg RC DAILY PRN PRN Reason: Constipation Stop: 08/28/19 08:50 Carbidopa/Levodopa (Sinemet) 1.5 each PO TID@0700,1300,1900 [facility] Stop: 08/28/19 10:01 Last Admin: 02/27/19 13:31 Dose: 1.5 each Documented by: Cyanocobalamin (Vitamin B12) 1,000 mcg PO DAILY [facility] Stop: 08/28/19 09:01 Last Admin: 02/27/19 11:02 Dose: 1,000 mcg Documented by: Diltiazem HCl (Cardizem) 60 mg PO Q12H [facility] Stop: 08/28/19 09:01 Last Admin: 02/27/19 11:02 Dose: 60 mg Documented by: Docusate Sodium (Colace) 200 mg PO BID [facility]; Protocol Stop: 08/28/19 09:01 Last Admin: 02/27/19 11:02 Dose: 200 mg Documented by: Entacapone (Comtan) 200 mg PO TID@0700,1300,1900 [facility] Stop: 08/28/19 10:01 Last Admin: 02/27/19 13:31 Dose: 200 mg Documented by: Furosemide (Lasix) 40 mg PO DAILY [facility] Stop: 08/28/19 09:01 Last Admin: 02/27/19 11:02 Dose: 40 mg Documented by: Glycopyrrolate (Robinul) 1 mg PO Q12H [facility] Stop: 08/28/19 09:01 Last Admin: 02/27/19 11:02 Dose: 1 mg Documented by: Heparin Sodium (Porcine) (Heparin) 5,000 unit SQ Q8HCO [facility]; Protocol Stop: 08/28/19 09:31 Last Admin: 02/27/19 13:32 Dose: 5,000 unit Documented by: Ibuprofen (Motrin) 400 mg PO Q6HR PRN PRN Reason: Mild Pain Stop: 08/28/19 07:59 Last Admin: 02/26/19 08:28 Dose: 400 mg Documented by: Nitroglycerin (Nitroglycerin) 0.4 mg SL Q5MIN PRN PRN Reason: Chest Pain Stop: 08/28/19 08:50 Omeprazole (Prilosec) 20 mg PO DAILY [facility] Stop: 08/28/19 09:01 Last Admin: 02/27/19 11:02 Dose: 20 mg Documented by: Oxycodone/Acetaminophen (Percocet 5/325) 1 each PO Q6HR PRN PRN Reason: Moderate Pain Stop: 08/28/19 10:11 Last Admin: 02/26/19 11:24 Dose: 1 each Documented by: Polyethylene Glycol (Miralax) 17 gm PO DAILY [facility] Stop: 08/28/19 09:01 Last Admin: 02/27/19 11:03 Dose: Not Given Documented by: Simvastatin (Zocor) 10 mg PO HS [facility] Stop: 08/28/19 21:01 Last Admin: 02/26/19 19:54 Dose: 10 mg Documented by: Tamsulosin HCl (Flomax) 0.4 mg PO DAILY [facility]; Protocol Stop: 08/28/19 09:01 Last Admin: 02/27/19 11:02 Dose: 0.4 mg Documented by: Vitamin D (Vitamin D) 1,000 unit PO DAILY [facility] Stop: 08/28/19 09:01 Last Admin: 02/27/19 11:02 Dose: 1,000 unit Documented by: - Imaging and Cardiology Chest Xray: report reviewed Stress Test: report reviewed Echo: report reviewed - EKG Interpretation EKG results cardiology: no diagnostic ischemia, other Consult Discharge Plan - Plan Referrals: Rustam Smith [Primary Care Provider] - HAS-BLED Score - Score Bleeding: Prior major bleeding or predisposition to bleeding Elderly: Age>65 years Medication usage predisposing to bleeding: Antiplatelet agents, NSAIDs, Anticoagulants Score: 3
--- NOTE | 2019-02-27 15:03 | Internal Med Progress Note ---
Hospitalist Progress Note - Encounter Date of Encounter: 02/27/19 Time of Encounter: 13:00 - Subjective Interval History: Pt was seen and examined at bed side. He still c/o chest pain. He denied any SOB. 9Does have resting tremors. - Exam Vitals: Temp Pulse Resp BP Pulse Ox 97.4 F L 67 16 127/64 94 02/27/19 12:02 02/27/19 12:02 02/27/19 12:02 02/27/19 12:02 02/27/19 12:02 Exam: Gen: Alert, awake, Oriented to time,place and person looks weak and lethargic.. He does have resting tremors Chest: Diminished breath sounds B/L, No wheezing, No crackles, No rales reproducible chest wall tenderness Heart: S1S2+ RRR No murmurs Abd: Soft, NT, BS +, No organomegaly Ext: No edema, pulses are palpable, No calf tenderness Neuro : No acute focal neuro deficits noticed Skin: No rash. - Assessment and Plan (1) Chest pain Current Visit: No Status: Acute Assessment and Plan: So far negative trop x 3 Cont on tele reviewed EKG - NSR, No acute ST, T changes ASA 81mg, Cardizem, and statin Nitro PRN Cont Percocet PRN for pain He did got for stress test - which came back as positive for ischemia Small sized, mild-moderate intensity stress perfusion defect involving the basal-mid inferolateral wall representing mild ischemia. Consutled cardiology for further eval Talked to pt and his both wanted to proceed with further work up if he needs any LHC Patient does need to stay in the hospital more than 2 midnights due to his complex medical problems. So we will change him to full admission today. I did review my colleague Dr. Perez's H & P including HPI, PMH, PSH, FH, SH, and ROS no changes noticed (2) Abnormal stress test Current Visit: Yes Status: Acute Assessment and Plan: Card consulted (3) Right sided weakness Current Visit: Yes Status: Acute Assessment and Plan: r/o CVA His weakness mostly due to physical deconditioning with his worsening Parki nson's disease MRI of Brain - negative for infarction Neuro on board appreciate recommendation PT / OT eval (4) Parkinson disease Current Visit: No Status: Chronic Assessment and Plan: Continue his home medications Neuro on board.. Appreciate recommendations PT/OT eval (5) DVT prophylaxis Current Visit: No Status: Acute Assessment and Plan: Subcutaneous heparin - Time Spent with Patient Total time spent is greater than 50% in coordination of care (as documented) at patient's floor/unit and/or counseling patient: Internal Medicine: Result - Labs CBC & Chem 7: 02/25/19 16:30 02/27/19 01:28 Labs: BMP 02/27/19 01:28 Sodium 137 Potassium 3.4 L Chloride 105 Carbon Dioxide 26 BUN 21 Creatinine 1.05 Glucose 103 Calcium 8.7 - ABG Interpretation ABG results: PT/INR, D-dimer PT 12.6 Seconds (9.4-12.1) H 02/26/19 04:19 D-Dimer 958 ng/mLFEU (0-500) H 02/26/19 11:11 - Impressions Impressions Videofluoroscopic Swallow 02/26/19 11:42 IMPRESSION: Suspected small amount of aspiration on the initial swallow of thin barium. No other episodes of penetration or aspiration were seen. Please see separate speech pathology report for full discussion of findings and recommendations. D/ / 02/26/2019 16:27:56 Theodore Baker MD / [email or web address] Interpreting Provider: Theodore Baker MD Chest CTA 02/26/19 14:35 IMPRESSION: No evidence of pulmonary embolism or acute pulmonary abnormality. D/ / Francisco Herman / Francisco Herman Interpreting Provider: Francisco Herman Consult Discharge Plan - Plan Referrals: Rustam Smith [Primary Care Provider] - (1) Chest pain Qualifiers: Chest pain type: precordial pain Qualified Code(s): R07.2 - Precordial pain
[2019-02-28] MEDS: Carbidopa/Levodopa 25/100 TABLET PO SCH ×2 (06:09→12:48)
[2019-02-28] MEDS: *HR* Heparin 5,000 UNIT/ML VIAL SQ SCH ×2 (06:10→12:48)
[2019-02-28] MEDS: Furosemide 40 MG TABLET PO SCH (08:42)
[2019-02-28] MEDS: Aspirin 81 MG TAB.CHEW PO SCH (08:42)
[2019-02-28] MEDS: dilTIAZem HCl 60 MG TABLET PO SCH (08:42)
[2019-02-28] MEDS: Glycopyrrolate 1 MG TABLET PO SCH (08:42)
[2019-02-28] MEDS: Cyanocobalamin (B-12) 1,000 MCG TABLET PO SCH (08:43)
[2019-02-28] MEDS: Cholecalciferol (D-3) 1,000 UNIT (25MCG) TABLET PO SCH (08:43)
[2019-02-28 11:40] VITALS: BP 121/65
--- NOTE | 2019-02-28 11:50 | Discharge Summary ---
- NOTES TO OUTPATIENT PROVIDER Notes to Outpatient Provider: f/u with PCP in one week. f/u with Cardiology in 1-2 weeks. Date of Encounter: 02/28/19 Time of Encounter: 11:48 - Discharge Diagnosis (1) Chest pain Priority: Primary Status: Acute Qualifiers: Chest pain type: precordial pain Qualified Code(s): R07.2 - Precordial pain (2) Abnormal stress test Priority: Primary Status: Acute (3) Right sided weakness Priority: Primary Status: Acute (4) Parkinson disease Priority: Secondary Status: Chronic (5) DVT prophylaxis Priority: Secondary Status: Acute (6) Paroxysmal A-fib Priority: Secondary Status: Chronic Hospital course: Mr. Pritchett is a 84 year old male with a past medical history of Parkinson's disease, hypertension, PE and DVT who presented to the ED from his neurology appointment due to concern for stroke like symptoms. Patient has been reporting two-week history of progressive weakness in the right upper and lower extremity. The patient also developed numbness/tingling of his right upper and lower extremities as well as increased dysphagia over the last couple weeks as well as an increased lack of ability to care for himself. Patient was admitted in the hospital placed him on building mover. His his serial troponin came back as negative. His his CT of the head did not show any acute intracranial hemorrhage. His brain MRI did not show any acute infarct. Pt did c/o left chest wall pain. He did have reproducible chest pain. His D- dimer came back high so did CTA of chest which was negative for PE. He did go for nuclear stress test which came back as positive for ischemia small sized, mild- moderate intensity stress perfusion defect involving the basal-mid inferolateral wall representing mild ischemia. Consulted cardiology for further eval. Pt was evaluated by cardiology , who recommended medical management with Aspirin, Statin and Cardizem. Cardiology noticed his 2D echo showed LVEF 60% and questionable A fib. His EKG showed Afib with HR @ 71. However on monitor he is regular NSR. Talked to pt and his family at bed side. He is high risk for fall and head bleed , so we decided not to start him on any anti coag, recommend to continue Aspirin. He is rate controlled with Cardizem. - Time Spent with Patient Total time spent providing and/or coordinating discharge services: - Discharge Medications Prescriptions: Continued Cyanocobalamin (Vitamin B-12) [Vitamin B-12] 1,000 mcg PO DAILY Aspirin 81 mg PO DAILY Cholecalciferol (Vitamin D3) [Vitamin D3] 1,000 unit PO DAILY Tamsulosin [Flomax] 0.4 mg PO DAILY Glycopyrrolate [Robinul] 1 mg PO Q12H Nitroglycerin 0.4 mg SL Q5MIN PRN #30 tab.subl PRN Reason: Chest Pain Carbidopa/Levodopa/Entacapone [Stalevo 150 Tablet] 1 each PO TID Acetaminophen [Extra Strength Non-Aspirin] 500 mg PO Q4H PRN PRN Reason: Pain Acetaminophen [Extra Strength Non-Aspirin] 1,000 mg PO BID Amitriptyline [Elavil] 5 mg PO HS Bisacodyl [Dulcolax] 10 mg RC DAILY PRN PRN Reason: Constipation Diclofenac Sodium [Voltaren] 2 gm TP BID dilTIAZem HCl [Cardizem] 60 mg PO Q12H Docusate Sodium [Dulcolax Stool Softener] 200 mg PO BID Furosemide [Lasix] 40 mg PO DAILY Hyoscyamine SL [Levsin Sl] 0.125 mg PO Q2H PRN PRN Reason: Excessive Secretions Hyoscyamine Sulfate 1 ml PO QID Melatonin 2 mg PO HS Pantoprazole Sodium [Protonix] 40 mg PO DAILY Polyethylene Glycol 3350 [MiraLAX] 17 gm PO DAILY Pravastatin Sodium [Pravachol] 20 mg PO HS Sennosides [Senna] 8.6 mg PO HS Home Medications: Aspirin 81 mg PO DAILY 02/04/16 [History] Cholecalciferol (Vitamin D3) [Vitamin D3] 1,000 unit PO DAILY 02/04/16 [History] Cyanocobalamin (Vitamin B-12) [Vitamin B-12] 1,000 mcg PO DAILY 02/04/16 [History] Glycopyrrolate [Robinul] 1 mg PO Q12H 08/24/17 [History] Tamsulosin [Flomax] 0.4 mg PO DAILY 08/24/17 [History] Nitroglycerin 0.4 mg SL Q5MIN PRN #30 tab.subl 08/25/17 [Rx] Acetaminophen [Extra Strength Non-Aspirin] 1,000 mg PO BID 02/25/19 [History] Acetaminophen [Extra Strength Non-Aspirin] 500 mg PO Q4H PRN 02/25/19 [History] Amitriptyline [Elavil] 5 mg PO HS 02/25/19 [History] Bisacodyl [Dulcolax] 10 mg RC DAILY PRN 02/25/19 [History] Carbidopa/Levodopa/Entacapone [Stalevo 150 Tablet] 1 each PO TID 02/25/19 [History] Diclofenac Sodium [Voltaren] 2 gm TP BID 02/25/19 [History] Docusate Sodium [Dulcolax Stool Softener] 200 mg PO BID 02/25/19 [History] Furosemide [Lasix] 40 mg PO DAILY 02/25/19 [History] Hyoscyamine SL [Levsin Sl] 0.125 mg PO Q2H PRN 02/25/19 [History] Hyoscyamine Sulfate 1 ml PO QID 02/25/19 [History] Melatonin 2 mg PO HS 02/25/19 [History] Pantoprazole Sodium [Protonix] 40 mg PO DAILY 02/25/19 [History] Polyethylene Glycol 3350 [MiraLAX] 17 gm PO DAILY 02/25/19 [History] Pravastatin Sodium [Pravachol] 20 mg PO HS 02/25/19 [History] Sennosides [Senna] 8.6 mg PO HS 02/25/19 [History] dilTIAZem HCl [Cardizem] 60 mg PO Q12H 02/25/19 [History] Allergies/Adverse Reactions: Allergy/AdvReac Type Severity Reaction Status Date / Time Pneumococcal Vaccine Allergy Muscle Pain Verified 02/04/16 08:16 Date of admission: 02/27/19 14:28 Primary care physician: Rustam Smith Consults: 02/25/19 18:10 Consult to Neurology [CONS] Stat Consulting Provider: [facility] Reason for Consult: worsening neuro symptoms/parkinsons Time Notified: 18:10 Call Completed: Yes 02/26/19 09:20 Consult to Occupational Therapy [CONS] Routine Comment: Evaluate, develop and implement POC Reason for Consult: Right-sided weakness in the setting of Parkinson's disea se. Currently undergoing workup for CVA/TIA. MRI thus far has been negative. Does patient have active BEDREST order?: No Is patient medically & hemodynamically stable?: Yes Consult to Physical Therapy [CONS] Routine Comment: Evaluate, develop and implement POC Reason for Consult: Right-sided weakness in the setting of Parkinson's disease. Currently undergoing workup for CVA/TIA. MRI thus far has been negative. Does patient have active BEDREST order?: No Is patient medically & hemodynamically stable?: Yes 02/27/19 09:00 Consult to Change Management Coordinator [CONS] Routine Reason for SW Consult: PT/OT RECOMMEND SNF. PATIENT POSSIBLY FROM [facility] 02/27/19 11:41 Consult to Cardiology [CONS] Routine Comment: Consulting Provider: Cardiology [facility] Reason for Consult: abnormal stress test Time Notified: 11:42 Call Completed: Yes - Constitutional Vitals: Temp Pulse Resp BP Pulse Ox 98.0 F 60 20 121/65 95 02/28/19 11:39 02/28/19 11:39 02/28/19 11:39 02/28/19 11:39 02/28/19 11:39 General appearance: Present: cooperative, A&O X 3, no acute distress, answers questions appropriately Exam: Gen: Alert, awake, Oriented to time,place and person looks weak and lethargic.. He does have resting tremors Chest: Diminished breath sounds B/L, No wheezing, No crackles, No rales reproducible chest wall tenderness Heart: S1S2+ RRR No murmurs Abd: Soft, NT, BS +, No organomegaly Ext: No edema, pulses are palpable, No calf tenderness Neuro : No acute focal neuro deficits noticed Skin: No rash. - Patient Status Disposition: Transfer SNF Condition: Good Overall status at discharge: patient is back to baseline - Discharge Instructions Follow Up With: Rustam Smith [Primary Care Provider] - Leland Gamez DO [Partnered Physician] - - Diet and Activity Activity: as per physical therapy, increase activity as tolerated Diet: low salt diet
--- NOTE | 2019-02-28 11:51 | Physician Discharge Referral ---
[facility] Referral Info Transfer To: ECF Provider in Charge after Transfer: PCP Institutional Level of Care: Skilled - Diagnosis (1) Chest pain Status: Acute (2) Abnormal stress test Status: Acute (3) Right sided weakness Status: Acute (4) Parkinson disease Status: Chronic (5) DVT prophylaxis Status: Acute (6) Paroxysmal A-fib Status: Chronic - Transfer Medications Home Medications: Aspirin 81 mg PO DAILY 02/04/16 [History] Cholecalciferol (Vitamin D3) [Vitamin D3] 1,000 unit PO DAILY 02/04/16 [History] Cyanocobalamin (Vitamin B-12) [Vitamin B-12] 1,000 mcg PO DAILY 02/04/16 [Hist ory] Glycopyrrolate [Robinul] 1 mg PO Q12H 08/24/17 [History] Tamsulosin [Flomax] 0.4 mg PO DAILY 08/24/17 [History] Nitroglycerin 0.4 mg SL Q5MIN PRN #30 tab.subl 08/25/17 [Rx] Acetaminophen [Extra Strength Non-Aspirin] 1,000 mg PO BID 02/25/19 [History] Acetaminophen [Extra Strength Non-Aspirin] 500 mg PO Q4H PRN 02/25/19 [History] Amitriptyline [Elavil] 5 mg PO HS 02/25/19 [History] Bisacodyl [Dulcolax] 10 mg RC DAILY PRN 02/25/19 [History] Carbidopa/Levodopa/Entacapone [Stalevo 150 Tablet] 1 each PO TID 02/25/19 [History] Diclofenac Sodium [Voltaren] 2 gm TP BID 02/25/19 [History] Docusate Sodium [Dulcolax Stool Softener] 200 mg PO BID 02/25/19 [History] Furosemide [Lasix] 40 mg PO DAILY 02/25/19 [History] Hyoscyamine SL [Levsin Sl] 0.125 mg PO Q2H PRN 02/25/19 [History] Hyoscyamine Sulfate 1 ml PO QID 02/25/19 [History] Melatonin 2 mg PO HS 02/25/19 [History] Pantoprazole Sodium [Protonix] 40 mg PO DAILY 02/25/19 [History] Polyethylene Glycol 3350 [MiraLAX] 17 gm PO DAILY 08/27/19 [History] Pravastatin Sodium [Pravachol] 20 mg PO HS 02/25/19 [History] Sennosides [Senna] 8.6 mg PO HS 02/25/19 [History] dilTIAZem HCl [Cardizem] 60 mg PO Q12H 02/25/19 [History] Allergies/Adverse Reactions: Allergy/AdvReac Type Severity Reaction Status Date / Time Pneumococcal Vaccine Allergy Muscle Pain Verified 02/04/16 08:16 - Respiratory Orders Smoking Cessation: Smoking cessation has been advised. For more information, call the [place] Tobacco Quit Line at 1-404-ACRMNOW. CERTIFICATION: I certify that the transfer of the above named patient to an Extended Care Facility is necessary for the continuing treatment of the diagnosis listed. The above information is true and accurate reflection of patient's current condition. Confidential - Redisclosure prohibited without a patient's written consent.
== END 2019-02-28 15:42 | DRG 57 ==
LOC: 3BNU 15:28 → EMEROOARM 15:28 → 3BNU 22:18 → SUATTDRO 02-27 14:28
PROVIDERS: ADMIT Internal Medicine Nephrology; ATTEND Family Medicine